=== PATIENT | female | born 1985 | race Caucasian/White ===

== ENCOUNTER 2018-08-08 03:11 | Inpatient (IN) | payer SELFPAY ==
[2018-08-08] MEDS ORDERED: KETOROLAC TROMETHAMINE INJ/PF 30 MG/1 ML SDV IV ONE (03:47)
[2018-08-08] MEDS ORDERED: RINGERS SOLUTION,LACTATED 1,000 ML IV ONE (03:55)
--- NOTE | 2018-08-08 04:22 | ER Document Report ---
ED General - General Chief Complaint: Shortness Of Breath Stated Complaint: SICK, RIB PAIN Time Seen by Provider: 08/08/18 03:41 Primary Care Provider: BROOK WAY MD [ACTIVE STAFF] - 08/10/18 VENESSA TREADWELL MD [Primary Care Provider] - 08/10/18 Notes: Patient is a 32-year-old female presents with complaint of sudden onset of fever with pain whenever she takes a deep breath or cough on the right side. Some congestion. No vomiting. No known sick contacts. No chronic medical problems. TRAVEL OUTSIDE OF THE [place] IN LAST 30 DAYS: No - Related Data Allergies/Adverse Reactions: Penicillins Adverse Reaction (Verified 08/08/18 03:17) Past Medical History - Social History Smoking Status: Unknown if Ever Smoked Frequency of alcohol use: None Drug Abuse: None Family History: Reviewed & Not Pertinent Review of Systems - Review of Systems Notes: My Normal Review Basic REVIEW OF SYSTEMS: CONSTITUTIONAL : Fevers EENT: Denies eye, ear, throat, or mouth pain or symptoms. Denies nasal or sinus congestion. CARDIOVASCULAR: Pain with coughing RESPIRATORY: difficult to breathing and coughing GASTROINTESTINAL: Denies abdominal pain. Denies nausea, vomiting, or diarrhea. Denies constipation. Last BM: GENITOURINARY: Denies difficulty urinating, painful urination, burning, frequency, or blood in urine. MUSCULOSKELETAL: Body aches SKIN: Denies rash or skin lesions. NEUROLOGICAL: Denies altered mental status or loss of consciousness. Denies headache. Denies weakness or paralysis or loss of use of either side. Denies problems with gait or speech. Denies sensory or motor loss. ALL OTHER SYSTEMS REVIEWED AND NEGATIVE. Physical Exam - Vital signs Vitals: Temp Pulse Resp BP Pulse Ox 102.0 F H 73 26 H 102/62 88 L 08/08/18 03:15 08/08/18 03:15 08/08/18 03:15 08/08/18 03:15 08/08/18 03:15 - Notes Notes: General Appearance: Well nourished, alert, cooperative, no acute distress, moderate obvious discomfort. Holding right rib cage. Vitals: reviewed, See vital signs table. Head: no swelling or tenderness to the head Eyes: PERRL, EOMI, Conjuctiva clear Mouth: No decreasd moisture Throat: No tonsillar inflammation, No airway obstruction, No lymphadenopathy Neck: Supple, no neck tenderness, No thyromegaly Lungs: No wheezing, No rales, No rhonci, No accessory muscle use, good air exchange bilaterally. Heart: Normal rate, Regular rythm, No murmur, no rub Abdomen: Normal BS, soft, No rigidity, No abdominal tenderness, No guarding, no rebound, no abdominal masses, no organomegaly Extremities: good pulses in all extremities, no edema. Skin: warm, dry, appropriate color, patient has small areas of scarring along the back from where it appears that she has had old pimples that have become abrasion scarred. No new acute appearing rash along the flank. Nothing consistent with shingles. Neuro: speech clear, oriented x 3, normal affect, responds appropriately to questions. Course - Re-evaluation Re-evalutation: 08/08/18 06:57 Patient does have pain from what appears to be pneumonia with a small cavitary lesion. Patient does not have any risk factors for TB. I did review all this with her. She has not been outside the country. She has not been exposed in November with TB that she is aware of. She has not been coughing up blood. She is now immunosuppressed in any way. She has no chronic medical problems. She does not live on a farm and does not do with livestock. I did call our pulmonologis t, Dr. Way, discussed the case with him. Is being the patient does not have risk factors for TB the most common causes would be MRSA or Klebsiella Pseudomonas. He recommends cover for MRSA as well as treatment with Levaquin to cover for Pseudomonas. Says the patient clinically looks well and is doing well then she can be discharged home and follow-up outpatient in. Is hoping to get the patient to this point but unfortunately she continues to be splint because of pain and becomes hypoxic because of this. She looks very uncomfortable. I do not think she will do well at home. We will place her on 2 L nasal cannula. I have ordered vancomycin as well as Levaquin. I have spoken to hospitalist Dr. Wynn and Laura Ravi NP, who agree to evaluate the patient for admission. Dictation of this chart was performed using voice recognition software; therefore, there may be some unintended grammatical errors. 08/08/18 07:01 08/08/18 07:46 08/08/18 07:48 - Vital Signs Vital signs: Temp Pulse Resp BP Pulse Ox 102.0 F H 73 29 H 97/48 L 99 08/08/18 03:15 08/08/18 03:15 08/08/18 07:13 08/08/18 07:13 08/08/18 07:13 - Laboratory Result Diagrams: 08/08/18 05:00 08/08/18 05:00 Laboratory results interpreted by me: 08/08/18 05:00 WBC 19.2 H Hgb 9.4 L Hct 29.3 L MCV 71 L MCH 22.8 L RDW 18.6 H Lymphocytes % 11.6 L Absolute Neutrophils 14.5 H Absolute Monocytes 2.4 H Discharge - Discharge Clinical Impression: Pneumonia Qualifiers: Pneumonia type: due to unspecified organism Laterality: right Lung location: lower lobe of lung Qualified Code(s): J18.1 - Lobar pneumonia, unspecified organism Condition: Stable Disposition: ADMITTED OBSERVATION Admitting Provider: Hospitalist Unit Admitted: Telemetry Additional Instructions: You have a pneumonia with a cavitary lesion. There are several different kinds of bacteria that could cause this. We will place you on two different antibiotics to ensure you covered. Please take the antibiotics as prescribed. Please call Dr. Way, manager commission, to make a close follow up appointment. Please call his office on Friday to make you appointment. please return to the ER immediately if you have intractable pain, recurrent fevers not responding to tylenol, coughing up of blood, difficulty breathing, or if you feel that you are worsening in any way. I have sent you home with a few Os[place] tablets to help with the pain. please take this sparingly so as to not develop dependence. Please return to the ER on Friday for reevaluation if you are unable to get in to your doctor or Dr. Way. You have been prescribed an antibiotic that is in the class of antibiotics called fluoroquinolones. On rare occasions these can cause weakness of the tendons. You should therefore avoid any type of heavy lifting or sporting activities while you are on this antibiotic and up to 1 week after stopping it. Doxycycline will make your skin more sensitive to the sun so please make sure you keep your skin covered or wear sunscreen whenever out in the sun. Please be aware that Osage does have Tylenol (acetaminophen) in it. Please make sure you do not take more than 4000 mg of acetaminophen a day. Do not drive or care for children after you have taken this medication they will make you sleepy and sometimes impair judgment. Prescriptions: Doxycycline Hyclate 100 mg PO BID #14 tablet. Hydrocodone/Acetaminophen [Os[place] 5-325 mg Tablet] 1 tab PO Q4 PRN #12 tablet PRN Reason: For Breakthrough Pain Levofloxacin [Levaquin 750 mg Tablet] 750 mg PO DAILY #5 tablet Referrals: VENESSA TREADWELL MD [Primary Care Provider] - 08/10/[address] MD [ACTIVE STAFF] - 08/10/18
[2018-08-08] MEDS ORDERED: KETOROLAC TROMETHAMINE INJ/PF 30 MG/1 ML SDV IM ONE (04:37)
--- NOTE | 2018-08-08 05:05 | RADIOLOGY REPORT (SQ) ---
CLINICAL HISTORY: cough/CP/SOB COMPARISON: None. TECHNIQUE: XR CHEST 2 VIEWS 08/08/2018 12:00 AM MANGLE TENDER CLOTH FINDINGS: Cardiac silhouette is normal in size. There is a 2.2 cm nodule in the perihilar right lung. There is a trace right pleural effusion. There is no pneumothorax. There are no acute osseous findings. IMPRESSION: 2.2 cm right lung nodule. Recommend unenhanced nonemergent chest CT.
[2018-08-08] MEDS ORDERED: MORPHINE SULFATE 10 MG/ML INJ IV ONE ×2 (05:13→07:01)
[2018-08-08 05:16] LABS: ABSOLUTE BASOPHILS # (AUTO) 0.1 10^3/uL (0.0-0.2); ABSOLUTE LYMPHOCYTES (AUTO) 2.2 10^3/uL (0.5-4.7); ABSOLUTE MONOCYTES (AUTO) 2.4 10^3/uL (0.1-1.4); ABSOLUTE NEUT (AUTO) 14.5 10^3/uL (1.7-8.2); BASOPHILS % (AUTO) 0.3 % (0-2); EOSINOPHILS % (AUTO) 0.2 % (0-6); HEMATOCRIT 29.3 % (36.0-47.0); HEMOGLOBIN 9.4 g/dL (12.0-15.5); LYMPHOCYTES % (AUTO) 11.6 % (13-45); MEAN CORPUSCULAR HEMOGLOBIN 22.8 pg (27.0-33.4); MEAN CORPUSCULAR HGB CONC 32.1 g/dL (32.0-36.0); MEAN CORPUSCULAR VOLUME 71 fl (80-97); MONOCYTES % (AUTO) 12.4 % (3-13); PLATELET COUNT 358 10^3/uL (150-450); RED BLOOD COUNT 4.11 10^6/uL (3.72-5.28); RED CELL DISTRIBUTION WIDTH 18.6 % (11.5-14.0); SEGMENTED NEUTROPHILS % (AUTO) 75.5 % (42-78); TOTAL CELLS COUNTED % (AUTO) 100 %; WHITE BLOOD COUNT 19.2 10^3/uL (4.0-10.5)
[2018-08-08 05:34] LABS: ANION GAP 11 (5-19); BLOOD UREA NITROGEN 12 mg/dL (7-20); CALCIUM 8.8 mg/dL (8.4-10.2); CARBON DIOXIDE 26 mmol/L (22-30); CHLORIDE 101 mmol/L (98-107); GLUCOSE 108 mg/dL (75-110); POTASSIUM 4.1 mmol/L (3.6-5.0); SODIUM 138.2 mmol/L (137-145)
[2018-08-08 05:39] LABS: A TYPE INFLUENZA AG NEGATIVE (NEGATIVE); B INFLUENZA AG NEGATIVE (NEGATIVE)
--- NOTE | 2018-08-08 06:19 | RADIOLOGY REPORT (SQ) ---
CLINICAL HISTORY: sob, cough, lung nodule vs. infiltrate COMPARISON: None. TECHNIQUE: CT CHEST WITH IV CONTRAST on 08/08/2018 5:11 AM CEMENT WORKER. MIPS reconstructions were generated. This exam was performed according to our departmental dose-optimization program, which includes automated exposure control, adjustment of the mA and/or kV according to patient size and/or use of iterative reconstruction technique. MIP images were generated. FINDINGS: Thoracic aorta is normal in course and caliber without aneurysm or dissection. Pulmonary arteries are adequately opacified without acute or chronic filling defects. The heart is normal in size. There is no pericardial effusion. Intrathoracic lymph nodes are not enlarged. There is a small right pleural effusion. Central airways are patent. There is a minimally cavitary nodule measuring 2.6 x 2.6 cm in the superior segment of the right lower lobe. There is a large dependent consolidation in the posterior aspect of the right lower lobe. There are no acute abnormalities within the limited images of the upper abdomen. There are no acute osseous findings. No suspicious bony lesions. IMPRESSION: Right lower lobe pneumonia. Cavitary nodule is likely part of infectious process.
[2018-08-08] MEDS ORDERED: DOXYCYCLINE HYCLATE 100 MG TABLET PO ONE (06:46)
[2018-08-08] MEDS ORDERED: LEVOFLOXACIN 750 MG TABLET PO ONE (06:47)
[2018-08-08] MEDS ORDERED: HYDROCODONE/ACETAMINOPHEN 5-325 MG (6 TAB/ER DISP) PO PRN (06:54)
[2018-08-08] MEDS ORDERED: VANCOMYCIN HCL INJ 1000 MG VIAL IV ONE (07:01)
[2018-08-08] MEDS ORDERED: LEVOFLOXACIN 750 MG/D5W RTU 750 MG/150 ML RTUPB IV ONE (07:02)
[2018-08-08] MEDS ORDERED: ACETAMINOPHEN 325 MG TABLET PO PRN (09:41)
[2018-08-08] MEDS ORDERED: ALBUTEROL SULFATE 0.083% NEB 2.5 MG/3 ML AMPUL NEB PRN (09:41)
[2018-08-08] MEDS ORDERED: OXYCODONE-ACETAMINOPHEN 5-325 MG TABLET PO PRN (09:46)
[2018-08-08] MEDS ORDERED: ONDANSETRON HCL INJ/PF 4 MG/2 ML SDV IV PRN (09:46)
[2018-08-08] MEDS ORDERED: MAG HYDROX/AL HYDROX/SIMETH SUSP 30 ML UDCUP PO PRN (09:46)
[2018-08-08] MEDS ORDERED: MAGNESIUM HYDROXIDE SUSP 30 ML UDCUP PO PRN (09:46)
[2018-08-08] MEDS ORDERED: VANCOMYCIN HCL 0 MG in DEXTROSE 5%-WATER 250 ML IV NR (10:00)
[2018-08-08] MEDS: NORMAL SALINE 1000 ML 1,000 ML IV PRN ×2 (12:44→21:46)
[2018-08-08] MEDS: FAMOTIDINE 20 MG TABLET PO SCH ×2 (12:51→21:44)
[2018-08-08] MEDS: DOCUSATE SODIUM 100 MG CAPSULE PO SCH (12:51)
[2018-08-08] MEDS: GUAIFENESIN 600 MG TABLET.SA PO SCH ×2 (12:51→21:44)
[2018-08-08] MEDS: OXYCODONE-ACETAMINOPHEN 5-325 MG TABLET PO PRN ×2 (12:51→21:44)
[2018-08-08] MEDS: ENOXAPARIN SODIUM INJ 40 MG/0.4 ML DISP.SYRIN SUBCUT SCH (12:52)
[2018-08-08 14:00] LABS: ALANINE AMINOTRANSFERASE < 6 U/L (9-52); ALKALINE PHOSPHATASE 113 U/L (38-126); ASPARTATE AMINO TRANSFERASE 51 U/L (14-36); BILIRUBIN,DIRECT 0.5 mg/dL (0.0-0.4); BILIRUBIN,TOTAL 0.7 mg/dL (0.2-1.3); TOTAL PROTEIN 8.2 g/dL (6.3-8.2)
[2018-08-08] MEDS: VANCOMYCIN HCL 750 MG in DEXTROSE 5%-WATER 250 ML IV SCH ×2 (14:55→21:44)
[2018-08-08] MEDS: IPRATROPIUM/ALBUTEROL 0.5-2.5 MG/3 ML AMPUL NEB SCH ×2 (16:08→23:57)
[2018-08-08 16:34] LABS: URINE BARBITURATES SCREEN NEGATIVE; URINE BENZODIAZEPINES SCREEN NEGATIVE; URINE MARIJUANA (THC) SCREEN NEGATIVE; URINE METHADONE SCREEN NEGATIVE; URINE PHENCYCLIDINE SCREEN NEGATIVE
[2018-08-08] MEDS ORDERED: NORMAL SALINE 1000 ML 1,000 ML IV ONE (16:38)
--- NOTE | 2018-08-08 16:51 | PDOC H&P ---
<KYRA STRONG - Last Filed: 08/08/18 16:34> History of Present Illness Admission Date/PCP: 08/08/18 09:41 VENESSA TREADWELL MD Patient complains of: Dyspnea History of Present Illness: DOROTEO IRAHETA is a 32 year old female with a past medical history of IV drug use and tobacco dependence with continuous use who presented to the emergency department today with a complaint of 3 days of progressively worsening cough, shortness of breath, pleuritic/chest wall pain to the right lateral chest wall, fever and chills. She reports that her significant other has similar symptoms; in fact, was admitted to our facility and recently transferred to a tertiary care facility for endocarditis with septic emboli resulting in multiple cavitary lesions. She reports that her last IV drug use was yesterday; shared materials with her significant other. Evaluation in the emergency department revealed fever (102), tachycardia (118), hypotension (95/58), tachypnea (32), and hypoxia 88% on room air. She is also noted to have leukocytosis (WBCs 19.2), anemia (hemoglobin 9.4), unremarkable chemistry, and chest CT revealing a right lower lobe pneumonia with small right pleural effusion and 2.6 x 2.6 cm right lower lobe cavitary lesion. She is referred to the hospitalist service for admission and management of sepsis secondary to right lower lobe pneumonia and presumed endocarditis. Past Medical History Cardiac Medical History: Reports: None Pulmonary Medical History: Reports: None EENT Medical History: Reports: None Neurological Medical History: Reports: None Endocrine Medical History: Reports: None Renal/ Medical History: Reports: None Malignancy Medical History: Reports: None GI Medical History: Reports: None Musculoskeltal Medical History: Reports: None Psychiatric Medical History: Reports: Substance Abuse, Tobacco Dependency Traumatic Medical History: Reports: None Hematology: Reports: None Infectious Medical History: Reports: None Past Surgical History Past Surgical History: Reports: Tubal Ligation Social History Information Source: Patient Lives with: Parents Smoking Status: Current Every Day Smoker Cigarettes Packs Per Day: 1 Frequency of Alcohol Use: Rare Hx Recreational Drug Use: Yes Drugs: Heroin Hx Prescription Drug Abuse: No - Advance Directive Resuscitation Status: Full Code Surrogate healthcare decision maker:: The patient's uncle, Jac Gresham, Family History Family History: Reviewed & Not Pertinent Parental Family History Reviewed: Yes Children Family History Reviewed: Yes Sibling(s) Family History Reviewed.: Yes Medication/Allergy Home Medications: RX: No Home Medications 08/08/18 Allergies/Adverse Reactions: Penicillins Adverse Reaction (Verified 08/08/18 03:17) Review of Systems Constitutional: PRESENT: chills, fatigue, fever(s), headache(s), night sweats. ABSENT: weight gain, weight loss Eyes: ABSENT: visual disturbances Ears: ABSENT: hearing changes Cardiovascular: PRESENT: chest pain, dyspnea on exertion. ABSENT: edema, orthropnea, palpitations Respiratory: PRESENT: cough, dyspnea, sputum. ABSENT: hemoptysis Gastrointestinal: ABSENT: abdominal pain, constipation, diarrhea, hematemesis, hematochezia, nausea, vomiting Genitourinary: ABSENT: dysuria, hematuria Musculoskeletal: ABSENT: joint swelling Integumentary: ABSENT: rash, wounds Neurological: ABSENT: abnormal gait, abnormal speech, confusion, dizziness, focal weakness, syncope Psychiatric: ABSENT: anxiety, depression, homidical ideation, suicidal ideation Endocrine: ABSENT: cold intolerance, heat intolerance, polydipsia, polyuria Hematologic/Lymphatic: ABSENT: easy bleeding, easy bruising Physical Exam Vital Signs: Temp Pulse Resp BP Pulse Ox 98.1 F 72 16 95/58 L 100 08/08/18 16:00 08/08/18 16:08 08/08/18 16:08 08/08/18 16:00 08/08/18 16:08 Pulse Oximeter Continuous Start: 08/08/18 11: 24 Freq: RTQ4 Status: Active Protocol: Document 08/08/18 16:08 [facility] (Rec: 08/08/18 16:14 [facility] [id number]) Pulse Oximetry Assessment Oxygen Saturation (92-100) 100 Oxygen Delivery Method Room Air Fraction of Inspired Oxygen (FIO2) 21 Equipment Usage Equipment in Use Continuous SpO2 Machine # 11 Intake & Output 08/07/18 08/08/18 08/09/18 06:59 06:59 06:59 Intake Total 1000 Balance 1000 Weight 58.06 kg 64.7 kg General appearance: PRESENT: no acute distress, disheveled, thin, well-developed Head exam: PRESENT: atraumatic, normocephalic Eye exam: PRESENT: conjunctiva pink, EOMI, PERRLA. ABSENT: scleral icterus Ear exam: PRESENT: normal external ear exam Mouth exam: PRESENT: moist, tongue midline Teeth exam: PRESENT: poor dentation Neck exam: ABSENT: carotid bruit, JVD, lymphadenopathy, thyromegaly Respiratory exam: PRESENT: chest wall tenderness, decreased breath sounds - Bibasilar; R>L, poor inspiratory effort, rhonchi - Course, throughout, symmetrical, tachypnea, other - Supplemental oxygen by nasal cannula. ABSENT: rales, wheezes Cardiovascular exam: PRESENT: RRR, +S1, +S2, tachycardia, other - Difficult to assess secondary to adventitious lung sounds. ABSENT: diastolic murmur, rubs, systolic murmur Pulses: PRESENT: normal dorsalis pedis pul Vascular exam: PRESENT: normal capillary refill GI/Abdominal exam: PRESENT: normal bowel sounds, soft. ABSENT: distended, guarding, mass, organolmegaly, rebound, tenderness Rectal exam: PRESENT: deferred Extremities exam: PRESENT: full ROM. ABSENT: calf tenderness, clubbing, pedal edema Neurological exam: PRESENT: alert, awake, oriented to person, oriented to place, oriented to time, oriented to situation, CN II-XII grossly intact. ABSENT: motor sensory deficit Psychiatric exam: PRESENT: anxious, appropriate affect, normal mood. ABSENT: homicidal ideation, suicidal ideation Skin exam: PRESENT: dry, intact, warm. ABSENT: cyanosis, rash Results Laboratory Results: 08/08/18 05:00 08/08/18 05:00 08/08/18 08/08/18 08/08/18 05:00 05:00 05:00 WBC 19.2 H RBC 4.11 Hgb 9.4 L Hct 29.3 L MCV 71 L MCH 22.8 L MCHC 32.1 RDW 18.6 H Plt Count 358 Seg Neutrophils % 75.5 Lymphocytes % 11.6 L Monocytes % 12.4 Eosinophils % 0.2 Basophils % 0.3 Absolute Neutrophils 14.5 H Absolute Lymphocytes 2.2 Absolute Monocytes 2.4 H Absolute Eosinophils 0.0 Absolute Basophils 0.1 Sodium 138.2 Potassium 4.1 Chloride 101 Carbon Dioxide 26 Anion Gap 11 BUN 12 Creatinine 0.59 Est GFR ( Amer) > 60 Est GFR (Non-Af Amer) > 60 Glucose 108 Calcium 8.8 Total Bilirubin AST ALT Alkaline Phosphatase Total Protein Albumin Serum HCG, Qual NEGATIVE 08/08/18 05:00 WBC RBC Hgb Hct MCV MCH MCHC RDW Plt Count Seg Neutrophils % Lymphocytes % Monocytes % Eosinophils % Basophils % Absolute Neutrophils Absolute Lymphocytes Absolute Monocytes Absolute Eosinophils Absolute Basophils Sodium Potassium Chloride Carbon Dioxide Anion Gap BUN Creatinine Est GFR ( Amer) Est GFR (Non-Af Amer) Glucose Calcium Total Bilirubin 0.7 AST 51 H ALT < 6 L Alkaline Phosphatase 113 Total Protein 8.2 Albumin 4.0 Serum HCG, Qual Impressions: Chest X-Ray 08/08/18 00:00 IMPRESSION: 2.2 cm right lung nodule. Recommend unenhanced nonemergent chest CT. Chest CT 08/08/18 05:11 IMPRESSION: Right lower lobe pneumonia. Cavitary nodule is likely part of infectious process. Assessment & Plan - Diagnosis (1) Pneumonia Qualifiers: Pneumonia type: due to unspecified organism Laterality: right Lung location: lower lobe of lung Qualified Code(s): J18.1 - Lobar pneumonia, unspecified organism Is this a current diagnosis for this admission?: Yes Plan: CXR demonstrated a 2 cm right lung nodule Chest CT revealed a small right pleural effusion, 2.6 x 2.6 cm cavitary lesion to the right lower lobe with dependent consolidation to the posterior aspect of the right lower lobe. Blood cultures are pending. Patient is admitted to the medical floor and continuous cardiac telemetry and co ntinuous pulse ox. She is provided supplemental oxygen as needed to maintain oxygen saturations greater than 90%. She is ordered scheduled and as needed nebulizer treatments. Mucinex twice daily. She is empirically placed on IV vancomycin and Levaquin. She did receive 1 dose of IV doxycycline by the ED provider. Will adjust antibiotics as blood cultures result. Discharge planning is consulted. (2) Sepsis Qualifiers: Sepsis type: sepsis due to unspecified organism Qualified Code(s): A41.9 - Sepsis, unspecified organism Is this a current diagnosis for this admission?: Yes Plan: The patient presented with sepsis 2 criteria due to pneumonia, present on admission, evidenced by fever, tachycardia, tachypnea, hypotension, hypoxia, and leukocytosis. Blood cultures are pending. She is provided IV bolus followed by IV maintenance fluids. Antibiotics as above. (3) IV drug user Is this a current diagnosis for this admission?: Yes Plan: The patient admits to IV heroin use yesterday. She reports daily use. Will monitor closely for evidence with withdrawal and provide symptomatic management as indicated. Due to the patient's presenting symptoms of pneumonia with a cavitary lesion; there is concern for endocarditis. Will obtain TTE. Discharge planning is consulted. (4) Suspected endocarditis Is this a current diagnosis for this admission?: Yes Plan: As above. (5) Tobacco use Is this a current diagnosis for this admission?: Yes Plan: Smoking cessation is encouraged. Nicotine or placement therapies are provided. - Time Time Spent: 50 to 70 Minutes Smoking Cessation Education: 3 to 10 minutes Medications reviewed and adjusted accordingly: Yes - Inpatient Certification Based on my medical assessment, after consideration of the patient's comorbidities, presenting symptoms, or acuity I expect that the services needed warrant INPATIENT care.: Yes I certify that my determination is in accordance with my understanding of Medicare's requirements for reasonable and necessary INPATIENT services [42 CFR 412.3e].: Yes Medical Necessity: Need Close Monitoring Due to Risk of Patient Decompensation, Need For IV Fluids, Need For Continuous Telemetry Monitoring, Need for IV Anti biotics, Risk of Diagnosis Which Will Require Inpatient Eval/Care/Monitoring <HARDIK MACHADO - Last Filed: 08/09/18 07:22> History of Present Illness Admission Date/PCP: 08/08/18 09:41 VENESSA TREADWELL MD History of Present Illness: DOROTEO IRAHETA is a 32 year old female Physical Exam Vital Signs: Temp Pulse Resp BP Pulse Ox 99.8 F 92 20 129/81 H 99 08/09/18 04:09 08/09/18 04:09 08/09/18 04:09 08/09/18 04:09 08/09/18 04:09 Pulse Oximeter Continuous Start: 08/08/18 11:24 Freq: RTQ4 Status: Active Protocol: Document 08/09/18 04:00 [facility] (Rec: 08/09/18 04:40 [facility] [id number]) Pulse Oximetry Assessment Oxygen Saturation (92-100) 95 Oxygen Delivery Method Room Air Fraction of Inspired Oxygen (FIO2) 21 Equipment Usage Equipment in Use Continuous Pulse Oximeter 24 Hour Charge Charge Now Continuous SpO2 Machine # 11 Intake & Output 08/08/18 08/09/18 08/10/18 06:59 06:59 06:59 Intake Total 1000 3286 Output Total 1480 Balance 1000 1806 Weight 128 lb 102 lb 4.712 oz Results Laboratory Results: 08/08/18 05:00 08/08/18 05:00 08/08/18 05:00 Total Bilirubin 0.7 AST 51 H ALT < 6 L Alkaline Phosphatase 113 Total Protein 8.2 Albumin 4.0 Impressions: Chest X-Ray 08/08/18 00:00 IMPRESSION: 2.2 cm right lung nodule. Recommend unenhanced nonemergent chest CT. Chest CT 08/08/18 05:11 IMPRESSION: Right lower lobe pneumonia. Cavitary nodule is likely part of infectious process. Assessment & Plan - Plan Summary Plan Summary: i did not see patient myself- agree with plan as it was presented to me
[2018-08-08 17:15] LABS: URINE COCAINE SCREEN UNCONFIRMED POSITIVE
[2018-08-08] MEDS: KETOROLAC TROMETHAMINE INJ/PF 30 MG/1 ML SDV IV PRN (17:37)
[2018-08-09] MEDS: KETOROLAC TROMETHAMINE INJ/PF 30 MG/1 ML SDV IV PRN (03:42)
[2018-08-09] MEDS: VANCOMYCIN HCL 750 MG in DEXTROSE 5%-WATER 250 ML IV SCH (05:10)
[2018-08-09] MEDS ORDERED: LEVOFLOXACIN 750 MG/D5W RTU 750 MG/150 ML RTUPB IV SCH (06:00)
[2018-08-09 08:27] VITALS: BP 118/73
[2018-08-09] MEDS: IPRATROPIUM/ALBUTEROL 0.5-2.5 MG/3 ML AMPUL NEB SCH (09:07)
[2018-08-09] MEDS: GUAIFENESIN 600 MG TABLET.SA PO SCH (09:52)
[2018-08-09] MEDS: DOCUSATE SODIUM 100 MG CAPSULE PO SCH (09:53)
[2018-08-09] MEDS: NICOTINE 14 MG/24 HR PATCH.TD24 TD SCH ×2 (09:53→09:59)
[2018-08-09] MEDS: ENOXAPARIN SODIUM INJ 40 MG/0.4 ML DISP.SYRIN SUBCUT SCH (09:53)
[2018-08-09] MEDS: FAMOTIDINE 20 MG TABLET PO SCH (09:53)
--- NOTE | 2018-08-09 14:12 | XCELERA REPORT ---
[address] [address] Transthoracic Echocardiogram Report Name: DOROTEO IRAHETA Age: 32 yrs Gender: Female : 1985 Patient Status: Inpatient Patient Location: [address] [place] [address] Study Date: 08/09/2018 09:36 AM Height: 71 in Weight: 142 lb BSA: 1.8 m2 Procedure: A two-dimensional transthoracic echocardiogram with color flow and Doppler was performed. The study was technically difficult with many images being suboptimal in quality. Reason For Study: Suspected endocarditis History: ENDOCARDITIS. Ordering Physician: KYRA STRONG Performed By: Bird Alaniz Interpretation Summary The left ventricle is normal in size. There is normal left ventricular wall thickness. The left ventricular ejection fraction is normal. LV EF is 65% Doppler measurements suggest normal left ventricular diastolic function The left ventricular wall motion is normal. There is no thrombus. There is no ventricular septal defect visualized. The right ventricle is normal in size and function. The right atrium is normal. The left atrial size is normal. The interatrial septum is intact with no evidence for an atrial septal defect. There is no evidence of mitral valve prolapse. There is suspicion for anterior mitral valve small vegetation.Needs ARIEL to be sure. There is no mitral valve stenosis. There is a trace amount of mitral regurgitation There is no aortic valve stenosis There is no LVOT obstruction. No aortic regurgitation is present. There is no tricuspid valve vegetation. There is no tricuspid stenosis. There is a trace to mild amount of tricuspid regurgitation There is mild pulmonary hypertension by echo RVSP is 34 mm of HG , with RA mean of 10. There is no pulmonic valvular stenosis. There is a trace amount of pulmonic regurgitation The aortic root is normal size. The inferior vena cava appeared normal and decreased > 50% with respiration (RAP 5-10 mmHg) There is no pericardial effusion. MMode/2D Measurements & Calculations RVDd: 2.1 cm LVIDd: 4.8 cm FS: 37.6 % Ao root diam: 3.1 cm IVSd: 0.89 cm LVIDs: 3.0 cm EDV(Teich): 109.2 ml Ao root area: 7.3 cm2 LVPWd: 0.90 cm ESV(Teich): 35.4 ml EF(Teich): 67.6 % LVOT diam: 1.8 cm LVOT area: 2.6 cm2 Doppler Measurements & Calculations MV E max vahe: MV dec slope: Ao V2 max: LV V1 max P.6 cm/sec 906.4 cm/sec2 143.0 cm/sec 5.7 mmHg MV A max vahe: MV dec time: Ao max PG: LV V1 mean P.2 cm/sec 0.16 sec 8.2 mmHg 3.1 mmHg MV E/A: 1.9 Ao V2 mean: LV V1 max: 97.8 cm/sec 119.8 cm/sec Ao mean PG: LV V1 mean: 4.3 mmHg 82.2 cm/sec Ao V2 VTI: 26.8 cmLV V1 VTI: 24.0 cm TRAV(I,D): 2.3 cm2 TRAV(V,D): 2.2 cm2 MR max vahe: SV(LVOT): 62.4 ml PA V2 max: PI end-d vahe: 243.2 cm/sec 84.6 cm/sec 76.1 cm/sec MR max PG: PA max P.7 mmHg 2.9 mmHg TR max vahe: 243.6 cm/sec TR max P.7 mmHg Left Ventricle The left ventricle is normal in size. There is normal left ventricular wall thickness. The left ventricular ejection fraction is normal. LV EF is 65%. Doppler measurements suggest normal left ventricular diastolic function. The left ventricular wall motion is normal. There is no thrombus. There is no ventricular septal defect visualized. Right Ventricle The right ventricle is normal in size and function. Atria The right atrium is normal. The left atrial size is normal. The interatrial septum is intact with no evidence for an atrial septal defect. Mitral Valve There is no evidence of mitral valve prolapse. There is suspicion for anterior mitral valve small vegetation.Needs ARIEL to be sure. There is no mitral valve stenosis. There is a trace amount of mitral regurgitation. Aortic Valve There is no aortic valvular vegetation. There is no aortic valve stenosis. There is no LVOT obstruction. No aortic regurgitation is present. Tricuspid Valve There is no tricuspid valve vegetation. There is no tricuspid stenosis. There is a trace to mild amount of tricuspid regurgitation. There is mild pulmonary hypertension by echo. RVSP is 34 mm of HG , with RA mean of 10. Pulmonic Valve There is no pulmonic valvular stenosis. There is a trace amount of pulmonic regurgitation. Great Vessels The aortic root is normal size. The inferior vena cava appeared normal and decreased > 50% with respiration (RAP 5-10 mmHg). Effusions There is no pericardial effusion. : KYRA STRONG > Hui Escudero
--- NOTE | 2018-08-09 15:17 | PDOC DISCHARGE SUMMARY ---
Addendum entered and electronically signed by KYRA STRONG NP-C 08/09/18 15:33: Provider Note Provider Note: Amendment: Patient was provided prescriptions for Levaquin and clindamycin. Original Note: <KYRA STRONG - Last Filed: 08/09/18 15:32> General - Admit/Disc Date/PCP Admission Date/Primary Care Provider: 08/08/18 09:41 VENESSA TREADWELL MD Discharge Date: 08/09/18 - Discharge Diagnosis (1) Pneumonia Is this a current diagnosis for this admission?: Yes (2) Sepsis Is this a current diagnosis for this admission?: Yes (3) IV drug user Is this a current diagnosis for this admission?: Yes (4) Suspected endocarditis Is this a current diagnosis for this admission?: Yes (5) Tobacco use Is this a current diagnosis for this admission?: Yes - Additional Information Resuscitation Status: Full Code Prescriptions: Levofloxacin [Levaquin 750 mg Tablet] 750 mg PO DAILY #10 tab RX: Clindamycin HCl [Cleocin 300 mg Capsule] 600 mg PO Q8 #84 cap Home Medications: Levofloxacin [Levaquin 750 mg Tablet] 750 mg PO DAILY #10 tab 08/09/18 RX: Clindamycin HCl [Cleocin 300 mg Capsule] 600 mg PO Q8 #84 cap 08/09/18 History of Present Illness History of Present Illness: DOROTEO IRAHETA is a 32 year old female with a past medical history of IV drug use and tobacco dependence with continuous use who presented to the emergency department today with a complaint of 3 days of progressively worsening cough, shortness of breath, pleuritic/chest wall pain to the right lateral chest wall, fever and chills. She reports that her significant other has similar symptoms; in fact, was admitted to our facility and recently transferred to a tertiary care facility for endocarditis with septic emboli resulting in multiple cavitary lesions. She reports that her last IV drug use was yesterday; shared materials with her significant other. Evaluation in the emergency department revealed fever (102), tachycardia (118), hypotension (95/58), tachypnea (32), and hypoxia 88% on room air. She is also noted to have leukocytosis (WBCs 19.2), anemia (hemoglobin 9.4), unremarkable chemistry, and chest CT revealing a right lower lobe pneumonia with small right pleural effusion and 2.6 x 2.6 cm right lower lobe cavitary lesion. She is referred to the hospitalist service for admission and management of sepsis secondary to right lower lobe pneumonia and presumed endocarditis. Hospital Course Hospital Course: The patient was admitted to the medical floor on continuous cardiac telemetry for right lower lobe pneumonia with cavitary lesion concerning for endocarditis with septic emboli. The patient admits to daily IV drug use. The patient was provided supplemental oxygen as needed to maintain saturations, scheduled and as needed nebulizer treatments, Mucinex, antiemetics, and analgesics as needed (Tylenol, IV Toradol, Percocet). She was placed on IV vancomycin and Levaquin secondary to penicillin allergy. The patient's respiratory status improved slightly and she was now maintaining oxygen saturations while on room air, though with increased work of breathing and tachypnea. Due to high suspicion of endocarditis, a transthoracic echocardiogram was obtained. The patient remained in-house for just over 24 hours prior to leaving AGAINST MEDICAL ADVICE. The patient reported that she was leaving [place] to travel to [facility] to visit her significant other who was just transferred to that facility for endocarditis. The patient was provided prescriptions for p.o. Augmentin and Clindamycin (MRSA coverage). She was educated that these medicati ons would help recover from pneumonia, but that cavitary pneumonia could develop complications requiring pulmonology/surgical interventions. She was also informed that these medications were not effective for the treatment of endocarditis and she was strongly encouraged to seek additional medical a ttention when she arrived at [facility]. After the patient left, the carpenter general contacted me with echocardiogram results. There is suspicion of mitral valve vegetation and need for follow-up ARIEL. The patient was called at home and notified of the results. She was informed that she could return to [facility] for care, including admission, arrangement for ARIEL, and 6 weeks of IV antibiotics if indicated, or, she could present to the emergency room at [facility] for care at their facility as well. The patient expressed appreciation for the call and reported that she would likely return to [facility] this evening for readmission. Physical Exam Vital Signs: Temp Pulse Resp BP Pulse Ox 98.9 F 92 18 118/73 97 08/09/18 08:00 08/09/18 09:07 08/09/18 09:07 08/09/18 08:00 08/09/18 09:07 Pulse Oximeter Continuous Start: 08/08/18 11:24 Freq: RTQ4 Status: Discharge Protocol: Document 08/09/18 09:07 [facility] (Rec: 08/09/18 10:00 [facility] [id number]) Pulse Oximetry Assessment Oxygen Saturation (92-100) 97 Oxygen Delivery Method Room Air Fraction of Inspired Oxygen (FIO2) 21 Equipment Usage Equipment in Use Continuous SpO2 Machine # 11 Intake & Output 08/08/18 08/09/18 08/10/18 06:59 06:59 06:59 Intake Total 1000 3286 400 Output Total 1480 Balance 1000 1806 400 Weight 58.06 kg 46.4 kg General appearance: PRESENT: mild distress - Acutely ill-appearing, tachypnea, shallow breathing, diaphoretic, thin, well-developed Head exam: PRESENT: atraumatic, normocephalic Eye exam: PRESENT: conjunctiva pink, EOMI, PERRLA. ABSENT: scleral icterus Ear exam: PRESENT: normal external ear exam Mouth exam: PRESENT: moist, tongue midline Teeth exam: PRESENT: dental caries, poor dentation Neck exam: ABSENT: carotid bruit, JVD, lymphadenopathy, thyromegaly Respiratory exam: PRESENT: chest wall tenderness, decreased breath sounds - Bibasilar; R>L, rhonchi, symmetrical, tachypnea. ABSENT: rales, wheezes Cardiovascular exam: PRESENT: RRR, +S1, +S2, tachycardia. ABSENT: diastolic murmur, rubs, systolic murmur Pulses: PRESENT: normal dorsalis pedis pul Vascular exam: PRESENT: normal capillary refill GI/Abdominal exam: PRESENT: normal bowel sounds, soft. ABSENT: distended, guarding, mass, organolmegaly, rebound, tenderness Rectal exam: PRESENT: deferred Extremities exam: PRESENT: full ROM. ABSENT: calf tenderness, clubbing, pedal edema Neurological exam: PRESENT: alert, awake, oriented to person, oriented to place, oriented to time, oriented to situation, CN II-XII grossly intact. ABSENT: motor sensory deficit Psychiatric exam: PRESENT: agitated, anxious, appropriate affect. ABSENT: jeanmarie icidal ideation, suicidal ideation Skin exam: PRESENT: dry, intact, warm. ABSENT: cyanosis, rash Results Laboratory Results: 08/08/18 05:00 08/08/18 05:00 Impressions: Chest X-Ray 08/08/18 00:00 IMPRESSION: 2.2 cm right lung nodule. Recommend unenhanced nonemergent chest CT. Chest CT 08/08/18 05:11 IMPRESSION: Right lower lobe pneumonia. Cavitary nodule is likely part of infectious process. Qualifiers - * PATIENT BEING DISCHARGED WITH ANY OF THE FOLLOWING DIAGNOSIS: No Plan Discharge Plan: Patient left AGAINST MEDICAL ADVICE. Time Spent: Less than 30 Minutes <JEANNETTEKIERAFLAQUITO Diana - Last Filed: 08/10/18 07:00> General - Admit/Disc Date/PCP Admission Date/Primary Care Provider: 08/08/18 09:41 VENSESA TREADWELL MD History of Present Illness History of Present Illness: DOROTEO IRAHETA is a 32 year old female Physical Exam Vital Signs: Temp Pulse Resp BP Pulse Ox 98.9 F 92 18 118/73 97 08/09/18 08:00 08/09/18 09:07 08/09/18 09:07 08/09/18 08:00 08/09/18 09:07 Pulse Oximeter Continuous Start: 08/08/18 11:24 Freq: RTQ4 Status: Discharge Protocol: Document 08/09/18 09:07 [facility] (Rec: 08/09/18 10:00 [facility] [id number]) Pulse Oximetry Assessment Oxygen Saturation (92-100) 97 Oxygen Delivery Method Room Air Fraction of Inspired Oxygen (FIO2) 21 Equipment Usage Equipment in Use Continuous SpO2 Machine # 11 Intake & Output 08/09/18 08/10/18 08/11/18 06:59 06:59 06:59 Intake Total 3286 400 Output Total 1480 Balance 1806 400 Weight 102 lb 4.712 oz Results Laboratory Results: 08/08/18 05:00 08/08/18 05:00 Impressions: Chest X-Ray 08/08/18 00:00 IMPRESSION: 2.2 cm right lung nodule. Recommend unenhanced nonemergent chest CT. Chest CT 08/08/18 05:11 IMPRESSION: Right lower lobe pneumonia. Cavitary nodule is likely part of infectious process. Plan Discharge Plan: i did not see patient- i agree with plan as it was presented to me
== END 2018-08-09 11:00 | disposition left against medical advice (07) | DRG 871 ==
LOC: ER 03:11 → EH 08:47 → OBSVTOIN 09:41 → 4S 10:14
PROVIDERS: ADMIT Internal Medicine; ATTEND Internal Medicine
DX: A41.9 Sepsis, unspecified organism (principal); J18.9 Pneumonia, unspecified organism; I38 Endocarditis, valve unspecified; F17.200 Nicotine dependence, unspecified, uncomplicated; D64.9 Anemia, unspecified; Z88.0 Allergy status to penicillin; Z87.898 Personal history of other specified conditions
CPT/HCPCS: 36415; 71046; 71260; 80048; 80076; 80307; 84703; 85025; 86701; 87040; 87804; 93306; 94667; 94762; 94799; 96361; 96365; 96372; 96375; 96376; 99285; J1650; J1885; J1956; J2270; J3370; J7030; J7060; J7120; J7620

== ENCOUNTER 2018-09-10 16:42 | Emergency (ER) | payer SELFPAY ==
[2018-09-10 17:05] VITALS: BP 128/75
--- NOTE | 2018-09-10 18:14 | EKG REPORT ---
SEVERITY:- NORMAL ECG - SINUS RHYTHM : Confirmed by: Hui Escudero MD 10-Sep-2018 18:13:32
== END 2018-09-10 20:00 | disposition left against medical advice (07) ==
LOC: ER 16:42
DX: Z53.21 Procedure and treatment not carried out due to patient leaving prior to being seen by health care provider (principal)
CPT/HCPCS: 93005; 93010

== ENCOUNTER 2019-01-12 17:49 | Emergency (ER) | payer SELFPAY ==
--- NOTE | 2019-01-12 18:29 | ER Document Report ---
Addendum entered and electronically signed by BOBO GARCIA NP 01/12/19 18:33: Course - Re-evaluation Re-evalutation: 01/12/19 18:32 Perla LUCAS states that as soon as patient is discharged [facility] will be going [facility], officer is here with her. - Vital Signs Vital signs: Temp Pulse Resp BP Pulse Ox 98.0 F 86 18 131/82 H 89 L 01/12/19 18:20 01/12/19 18:20 01/12/19 18:20 01/12/19 18:20 01/12/19 18:20 Original Note: ED Medical Screen (RME) - General Chief Complaint: Flank Pain Stated Complaint: ABDOMINAL PAIN Time Seen by Provider: 01/12/19 18:27 Primary Care Provider: VENESSA TREADWELL MD [Primary Care Provider] - Follow up as needed Mode of Arrival: Wheelchair Information source: Patient Notes: Patient presents complaining of generalized weakness and flank pain for the past 2 weeks. Patient states that she had been admitted for a week at [facility] and for a drug-resistant UTI. Patient states that she signed out AMA 10 days ago. Patient states she has had fever off and on that she has been treating with [id number] medications since leaving the hospital. Patient also complains of abscess to left buttock. I have greeted and performed a rapid initial assessment of this patient. A comprehensive ED assessment and evaluation of the patient, analysis of test results and completion of the medical decision making process will be conducted by additional ED providers. TRAVEL OUTSIDE OF THE [place] IN LAST 30 DAYS: No - Related Data Allergies/Adverse Reactions: amoxicillin [Amoxicillin] Allergy (Verified 01/12/19 18:12) Penicillins Adverse Reaction (Verified 01/12/19 18:12) Past Medical History Pulmonary Medical History: Reports: Hx Asthma - possible adult onset Renal/ Medical History: Reports: Hx Ovarian Cysts - Polycystic ovaries. Denies: Hx Peritoneal Dialysis Musculoskeltal Medical History: Reports Hx Musculoskeletal Trauma Traumatic Medical History: Reports: Hx Spine Fracture Past Surgical History: Reports: Hx Genitourinary Surgery, Hx Oral Surgery, Hx Tubal Ligation - Immunizations Immunizations up to date: Yes Hx Diphtheria, Pertussis, Tetanus Vaccination: Yes Physical Exam - Vital signs Vitals: Temp Pulse Resp BP Pulse Ox 98.0 F 86 18 131/82 H 89 L 01/12/19 18:20 01/12/19 18:20 01/12/19 18:20 01/12/19 18:20 01/12/19 18:20 - General General appearance: Alert - Abdominal Tenderness: Tender - Left side of abdomen - Back Back: CVA tenderness - Bilateral Course - Vital Signs Vital signs: Temp Pulse Resp BP Pulse Ox 98.0 F 86 18 131/82 H 89 L 01/12/19 18:20 01/12/19 18:20 01/12/19 18:20 01/12/19 18:20 01/12/19 18:20 Doctor's Discharge - Discharge Referrals: VENESSA TREADWELL MD [Primary Care Provider] - Follow up as needed
[2019-01-12 19:21] LABS: AMORPHOUS SEDIMENT,URINE TRACE /HPF; APPEARANCE,URINE CLOUDY; BILIRUBIN,URINE NEGATIVE (NEGATIVE); COLOR,URINE YELLOW; GLUCOSE, URINE NEGATIVE (NEGATIVE); KETONES,URINE TRACE mg/dL (NEGATIVE); LEUKOCYTE ESTERASE,URINE LARGE (NEGATIVE); NITRITE,URINE POSITIVE (NEGATIVE); PROTEIN,URINE NEGATIVE (NEGATIVE); URINE SPECIFIC GRAVITY 1.017; UROBILINOGEN,URINE NEGATIVE mg/dL (<2.0)
[2019-01-12 20:37] LABS: ABSOLUTE EOSINOPHILS # (AUTO) 0.1 10^3/uL (0.0-0.6); ABSOLUTE LYMPHOCYTES (AUTO) 1.1 10^3/uL (0.5-4.7); ABSOLUTE MONOCYTES (AUTO) 0.4 10^3/uL (0.1-1.4); ABSOLUTE NEUT (AUTO) 4.6 10^3/uL (1.7-8.2); BASOPHILS % (AUTO) 0.6 % (0-2); EOSINOPHILS % (AUTO) 2.3 % (0-6); HEMATOCRIT 26.4 % (36.0-47.0); HEMOGLOBIN 8.5 g/dL (12.0-15.5); LYMPHOCYTES % (AUTO) 17.3 % (13-45); MEAN CORPUSCULAR HEMOGLOBIN 23.2 pg (27.0-33.4); MEAN CORPUSCULAR VOLUME 73 fl (80-97); MONOCYTES % (AUTO) 6.9 % (3-13); PLATELET COUNT 415 10^3/uL (150-450); RED BLOOD COUNT 3.64 10^6/uL (3.72-5.28); RED CELL DISTRIBUTION WIDTH 18.8 % (11.5-14.0); SEGMENTED NEUTROPHILS % (AUTO) 72.9 % (42-78); TOTAL CELLS COUNTED % (AUTO) 100 %; WHITE BLOOD COUNT 6.3 10^3/uL (4.0-10.5)
--- NOTE | 2019-01-12 20:43 | ER Document Report ---
ED General - General Chief Complaint: Flank Pain Stated Complaint: ABDOMINAL PAIN Time Seen by Provider: 01/12/19 18:27 Primary Care Provider: VNEESSA TREADWELL MD [Primary Care Provider] - Follow up as needed Mode of Arrival: Wheelchair Notes: Patient is a 33-year-old female that comes to the emergency department for chief complaint of bilateral flank pain for the past 2 weeks, she also has a developing abscess on the left buttock which has become very painful over the past couple of days. She denies drainage from the area. She states she is been running fevers at home but has not recorded them. She denies vomiting. She states she was admitted to [facility] 10 days ago for a "resistant urinary tract infection", she states she left AGAINST MEDICAL ADVICE. She is not on any current medications except for "some Percocets they gave me". Past medical history includes ovarian cysts, asthma, tubal ligation, IV drug abuse. TRAVEL OUTSIDE OF THE [place] IN LAST 30 DAYS: No - Related Data Allergies/Adverse Reactions: amoxicillin [Amoxicillin] Allergy (Verified 01/12/19 18:12) Penicillins Adverse Reaction (Verified 01/12/19 18:12) Past Medical History - General Information source: Patient - Social History Smoking Status: Former Smoker Frequency of alcohol use: None Drug Abuse: Heroin Lives with: Spouse/Significant other Family History: Malignancy, CAD, CVA, DM, Hyperlipidemia, Hypertension, Reviewed & Not Pertinent Pulmonary Medical History: Reports: Hx Asthma - possible adult onset Renal/ Medical History: Reports: Hx Ovarian Cysts - Polycystic ovaries. Denies: Hx Peritoneal Dialysis Musculoskeletal Medical History: Reports Hx Musculoskeletal Trauma Traumatic Medical History: Reports: Hx Spine Fracture Past Surgical History: Reports: Hx Genitourinary Surgery, Hx Oral Surgery, Hx Tubal Ligation - Immunizations Immunizations up to date: Yes Hx Diphtheria, Pertussis, Tetanus Vaccination: Yes Review of Systems - Review of Systems Constitutional: No symptoms reported EENT: No symptoms reported Cardiovascular: No symptoms reported Respiratory: No symptoms reported Gastrointestinal: See HPI Genitourinary: See HPI Female Genitourinary: No symptoms reported Musculoskeletal: No symptoms reported Skin: See HPI Hematologic/Lymphatic: No symptoms reported Neurological/Psychological: No symptoms reported Physical Exam - Vital signs Vitals: Temp Pulse Resp BP Pulse Ox 98.0 F 86 18 131/82 H 89 L 01/12/19 18:20 01/12/19 18:20 01/12/19 18:20 01/12/19 18:20 01/12/19 18:20 - Notes Notes: GENERAL: Disheveled HEAD: Normocephalic, atraumatic. EYES: Pupils equal, round, and reactive to light. Extraocular movements intact. ENT: Oral mucosa moist, tongue midline. Oropharynx unremarkable. Airway patent. NECK: Full range of motion. Supple. Trachea midline. LUNGS: Clear to auscultation bilaterally, no wheezes, rales, or rhonchi. No respiratory distress. HEART: Regular rate and rhythm. No murmur ABDOMEN: Soft, non-tender. Non-distended. Bowel sounds present in all 4 quadrants. GENITOURINARY: Deferred EXTREMITIES: Moves all 4 extremities spontaneously. No edema, normal radial and dorsalis pedis pulses bilaterally. No cyanosis. BACK: no cervical, thoracic, lumbar midline tenderness. No saddle anesthesia, normal distal neurovascular exam. Moves all extremities in full range of motion. Tenderness worse over the left CVA area than the right, no severe tenderness noted. NEUROLOGICAL: Alert and oriented x3. Normal speech. Cranial nerves II through XII grossly intact. PSYCH: Normal affect, normal mood. SKIN: Scattered scabs over the body. Indurated, probably fluctuant area over the left medial buttock with induration extending close to the perianal area. No current drainage. Otherwise unremarkable skin exam. Course - Re-evaluation Re-evalutation: On examination patient has an abscess over the left buttock which extends with induration and tenderness which seems adjacent to the perianal area. No drainage. No fever/chills. Unremarkable vital signs. Patient is actually well-appearing even though she is very thin. Dr. Johnson did evaluate the patient at bedside, he reports this is not a perianal abscess and he does recommend incision and drainage here in the emergency department. This was performed without difficulty with good results. Patient tolerated this well. Packing was placed because of the size, I instructed patient this needs to be taken out in 2 days. Patient states understanding. CBC unremarkable, chemistry unremarkable. Urinalysis shows infection. Culture placed. We will obtain records from [place]. It has been several hours and we still have no records from [place]. It was found that this was not requested properly, this had to be performed again, there was significant delay because of this. Requested files did show that patient did have sepsis with ESBL on blood cultures, she also had a urinalysis showing ESBL with multiple resistances, however there are also multiple medications orally that this was not resistant t o including Cipro, Macrobid, Bactrim. Patient has already been given IM Rocephin and Bactrim. Patient has not had a fever here. She has been monitored here for hours and has had no decompensation. She is actually quite well- appearing. She has not run any fevers here. I did discuss with Dr. Fam. Discussed presentation, abscess, UTI, requested files. Plan is for patient be treated with Bactrim and Keflex, urine culture was placed, she is to return if she develops a fever, vomiting, worsening abscess, or any other worsening symptoms. Patient states understanding and agreement. Patient actually left with law enforcement who waited at the room the entire time. - Vital Signs Vital signs: Temp Pulse Resp BP Pulse Ox 97.8 F 77 22 H 117/76 100 01/13/19 02:22 01/13/19 02:22 01/13/19 02:22 01/13/19 02:22 01/13/19 02:22 - Laboratory Result Diagrams: 01/12/19 20:10 01/12/19 20:10 Laboratory results interpreted by me: 01/12/19 01/12/19 01/12/19 18:00 20:10 20:10 RBC 3.64 L Hgb 8.5 L Hct 26.4 L MCV 73 L MCH 23.2 L RDW 18.8 H Glucose 72 L Alkaline Phosphatase 128 H Total Protein 8.3 H Urine Ketones TRACE H Urine Nitrite POSITIVE H Ur Leukocyte Esterase LARGE H Procedures - Incision and Drainage Left medial gluteal area Type: Single Anesthetic type: 1% Lidocaine mL's of anesthetic: 8 I&D procedure: Shurclens applied, Iodoform packing placed, Sterile dressing applied Incision Method: Incision made by scalpel Amount/type of drainage: Moderate amount of purulent drainage, small amount of bloody drainage Discharge - Discharge Clinical Impression: Flank pain, Left buttock abscess Urinary tract infection Qualifiers: Urinary tract infection type: site unspecified Hematuria presence: without hematuria Qualified Code(s): N39.0 - Urinary tract infection, site not specified Condition: Stable Disposition: HOME, SELF-CARE Additional Instructions: Your work-up shows indication of a urinary tract infection. We have cultures pending. Your previous culture showed susceptibility to Bactrim therefore take this antibiotic as prescribed. Take the Keflex antibiotic as well because of the abscess. Keep the abscess clean, clean with soap and water, keep absorbing gauze dressing over the area. Change the dressing at least daily. Return for any concerning or worsening symptoms including vomiting, spreading redness on the area, fevers, or any other concerning or worsening symptoms. Prescriptions: Cephalexin Monohydrate [Keflex 500 mg Capsule] 500 mg PO QID #28 capsule Sulfamethoxazole/Trimethoprim [Bactrim Ds Tablet] 1 each PO BID #14 tablet Referrals: VENESSA TREADWELL MD [Primary Care Provider] - Follow up as needed
[2019-01-12 20:50] LABS: ALANINE AMINOTRANSFERASE 14 U/L (9-52); ALBUMIN 4.1 g/dL (3.5-5.0); ALKALINE PHOSPHATASE 128 U/L (38-126); ANION GAP 10 (5-19); ASPARTATE AMINO TRANSFERASE 31 U/L (14-36); BILIRUBIN,DIRECT 0.4 mg/dL (0.0-0.4); BILIRUBIN,TOTAL 0.4 mg/dL (0.2-1.3); BLOOD UREA NITROGEN 9 mg/dL (7-20); CALCIUM 9.6 mg/dL (8.4-10.2); CARBON DIOXIDE 23 mmol/L (22-30); CHLORIDE 107 mmol/L (98-107); GLUCOSE 72 mg/dL (75-110); SODIUM 139.8 mmol/L (137-145); TOTAL PROTEIN 8.3 g/dL (6.3-8.2)
[2019-01-12 20:52] LABS: POTASSIUM 4.5 mmol/L (3.6-5.0)
[2019-01-12] MEDS ORDERED: OXYCODONE-ACETAMINOPHEN 5-325 MG TABLET PO ONE (20:59)
[2019-01-12] MEDS ORDERED: LIDOCAINE 1% INJ-PF (10 MG/ML) 30 ML SDV INJ ONE ×2 (22:30→22:31)
[2019-01-12] MEDS ORDERED: SULFAMETHOXAZOLE/TRIMETHOPRIM 800-160 MG TABLET PO ONE (22:31)
[2019-01-12] MEDS ORDERED: CEFTRIAXONE INJ 1000 MG VIAL IM ONE (22:31)
--- NOTE | 2019-01-12 22:46 | PDOC CONSULTATION ---
Consultation Consult Date: 01/12/19 Provider Consulted: BERYL SHEFFIELD Consult reason:: Evaluate for possible perianal abscess History of Present Illness Admission Date/PCP: VENESSA TREADWELL MD Patient complains of: Left buttocks pain History of Present Illness: CRYS RIZZO is a 33 year old female IV heroin abuser recently hospitalized at an outside hospital for E. coli sepsis. She left AGAINST MEDICAL ADVICE. She continues to have urologic symptoms as well as several day history of left buttocks pain. No prior history of perianal problems. Past Medical History Pulmonary Medical History: Reports: Asthma - possible adult onset Infectious Medical History: Reports: Other Infectious History Note: According to the patient antibiotic resistant E. coli sepsis. Past Surgical History Past Surgical History: Reports: Tubal Ligation Social History Smoking Status: Unknown if Ever Smoked Frequency of Alcohol Use: Rare Hx Recreational Drug Use: Yes - Heroin Drugs: Heroin - She injected in her neck but not in her lower extremity nor groin Hx Prescription Drug Abuse: No Family History Family History: Malignancy, CAD, CVA, DM, Hyperlipidemia, Hypertension, Reviewed & Not Pertinent Parental Family History Reviewed: No Children Family History Reviewed: No Sibling(s) Family History Reviewed.: No Medication/Allergy Home Medications: Cephalexin Monohydrate [Keflex 500 mg Capsule] 500 mg PO Q6H 5 Days capsule 12/27/14 Clindamycin HCl [Cleocin 300 mg Capsule] 300 mg PO QID #28 capsule 12/27/14 Oxycodone HCl/Acetaminophen [Percocet 5-325 mg Tablet] 1 - 2 tab PO ASDIR PRN #15 tablet 12/27/14 Hydrocodone/Acetaminophen [[place] 5-325 mg Tablet] 1 tab PO Q6 #10 tablet 02/06/15 Oxycodone HCl/Acetaminophen [Percocet 5-325 mg Tablet] 1 - 2 tab PO ASDIR PRN #4 tablet 02/28/15 Sulfamethoxazole/Trimethoprim [Bactrim Ds Tablet] 1 each PO BID #6 tablet 08/15/15 Ciprofloxacin HCl [Cipro 500 mg Tablet] 500 mg PO BID #14 tablet 10/30/15 Phenazopyridine HCl [Pyridium 200 mg Tablet] 200 mg PO TID #12 tablet 10/30/15 Etodolac [Lodine] 400 mg PO BID #14 tablet 04/10/17 Sulfamethoxazole/Trimethoprim [Bactrim Ds Tablet] 1 each PO BID #14 tablet 04/10/17 Ferrous Sulfate 325 mg PO DAILY #60 tablet 03/01/18 Clindamycin HCl [Cleocin 300 mg Capsule] 600 mg PO Q8 #84 cap 08/09/18 Levofloxacin [Levaquin 750 mg Tablet] 750 mg PO DAILY #10 tab 08/09/18 Allergies/Adverse Reactions: amoxicillin [Amoxicillin] Allergy (Verified 01/12/19 18:12) Penicillins Adverse Reaction (Verified 01/12/19 18:12) Physical Exam Vital Signs: Temp Pulse Resp BP Pulse Ox 98.0 F 86 18 131/82 H 89 L 01/12/19 18:20 01/12/19 18:20 01/12/19 18:20 01/12/19 18:20 01/12/19 18:20 Intake & Output 01/11/19 01/12/19 01/13/19 06:59 06:59 06:59 Weight 57.4 kg General appearance: PRESENT: cooperative, mild distress Eye exam: PRESENT: conjunctiva pink Respiratory exam: PRESENT: clear to auscultation lupe Cardiovascular exam: PRESENT: RRR GI/Abdominal exam: PRESENT: other - Soft, nondistended, nontender to palpation although she does have some left groin tenderness with very small mobile nodes. Positive right CVA tenderness Rectal exam: PRESENT: other - Digital rectal exam reveals normal anal sphincter tone with no perianal masses nor fluctuance nor tenderness. Patient does have a left buttocks walnut size region of erythema and marked tenderness that is a few centimeters away from the perianal region. Neurological exam: PRESENT: awake Psychiatric exam: PRESENT: anxious, other - Tearful Results Laboratory Results: 01/12/19 20:10 01/12/19 20:10 01/12/19 01/12/19 01/12/19 18:00 20:10 20:10 WBC 6.3 RBC 3.64 L Hgb 8.5 L Hct 26.4 L MCV 73 L MCH 23.2 L MCHC 32.0 RDW 18.8 H Plt Count 415 Seg Neutrophils % 72.9 Lymphocytes % 17.3 Monocytes % 6.9 Eosinophils % 2.3 Basophils % 0.6 Absolute Neutrophils 4.6 Absolute Lymphocytes 1.1 Absolute Monocytes 0.4 Absolute Eosinophils 0.1 Absolute Basophils 0.0 Sodium 139.8 Potassium 4.5 Chloride 107 Carbon Dioxide 23 Anion Gap 10 BUN 9 Creatinine 0.52 Est GFR ( Amer) > 60 Est GFR (Non-Af Amer) > 60 Glucose 72 L Calcium 9.6 Total Bilirubin 0.4 AST 31 ALT 14 Alkaline Phosphatase 128 H Total Protein 8.3 H Albumin 4.1 Serum HCG, Qual Urine Color YELLOW Urine Appearance CLOUDY Urine pH 6.0 Ur Specific [place] 1.017 Urine Protein NEGATIVE Urine Glucose (UA) NEGATIVE Urine Ketones TRACE H Urine Blood NEGATIVE Urine Nitrite POSITIVE H Ur Leukocyte Esterase LARGE H Urine WBC (Auto) >182 Urine RBC (Auto) 6 01/12/19 20:10 WBC RBC Hgb Hct MCV MCH MCHC RDW Plt Count Seg Neutrophils % Lymphocytes % Monocytes % Eosinophils % Basophils % Absolute Neutrophils Absolute Lymphocytes Absolute Monocytes Absolute Eosinophils Absolute Basophils Sodium Potassium Chloride Carbon Dioxide Anion Gap BUN Creatinine Est GFR ( Amer) Est GFR (Non-Af Amer) Glucose Calcium Total Bilirubin AST ALT Alkaline Phosphatase Total Protein Albumin Serum HCG, Qual NEGATIVE Urine Color Urine Appearance Urine pH Ur Specific [place] Urine Protein Urine Glucose (UA) Urine Ketones Urine Blood Urine Nitrite Ur Leukocyte Esterase Urine WBC (Auto) Urine RBC (Auto) Assessment & Plan - Diagnosis (1) Abscess of buttock, left Is this a current diagnosis for this admission?: Yes Plan: I do not think she has a perianal abscess. I believe it is a simple buttocks abscess. Emergency room PA stated that he could perform the I&D. Will defer to his expertise. (2) Pyelonephritis Is this a current diagnosis for this admission?: Yes Plan: Likely right pyelonephritis based upon her severe right CVA tenderness and her significantly positive urine. Defer to medical management.
[2019-01-13 02:26] VITALS: BP 117/76
== END 2019-01-13 02:30 | disposition home or self-care (01) ==
LOC: ER 17:49
DX: N39.0 Urinary tract infection, site not specified (principal); R10.9 Unspecified abdominal pain; L02.31 Cutaneous abscess of buttock; Z79.899 Other long term (current) drug therapy; Z87.891 Personal history of nicotine dependence
CPT/HCPCS: 99284; 96372; 36415; 87040; 87086; 84703; 85025; 87088; 80053; 81001; 87186; J3490; J0696

== ENCOUNTER 2019-05-26 21:49 | Observation (INO) | payer OTHER ==
[2019-05-26] MEDS ORDERED: NORMAL SALINE 1000 ML 1,000 ML IV ONE (22:08)
[2019-05-26] MEDS ORDERED: ONDANSETRON HCL INJ/PF 4 MG/2 ML SDV IV ONE (22:09)
[2019-05-26] MEDS ORDERED: MORPHINE SULFATE 10 MG/ML INJ IV ONE ×2 (22:09→23:33)
[2019-05-26 23:38] LABS: ABSOLUTE EOSINOPHILS # (AUTO) 0.1 10^3/uL (0.0-0.6); ABSOLUTE LYMPHOCYTES (AUTO) 1.6 10^3/uL (0.5-4.7); ABSOLUTE MONOCYTES (AUTO) 0.9 10^3/uL (0.1-1.4); BASOPHILS % (AUTO) 0.3 % (0-2); HEMATOCRIT 33.3 % (36.0-47.0); HEMOGLOBIN 10.4 g/dL (12.0-15.5); LYMPHOCYTES % (AUTO) 16.5 % (13-45); MEAN CORPUSCULAR HEMOGLOBIN 22.8 pg (27.0-33.4); MEAN CORPUSCULAR HGB CONC 31.4 g/dL (32.0-36.0); MEAN CORPUSCULAR VOLUME 73 fl (80-97); MONOCYTES % (AUTO) 9.6 % (3-13); PLATELET COUNT 272 10^3/uL (150-450); RED BLOOD COUNT 4.59 10^6/uL (3.72-5.28); RED CELL DISTRIBUTION WIDTH 18.6 % (11.5-14.0); SEGMENTED NEUTROPHILS % (AUTO) 72.6 % (42-78); TOTAL CELLS COUNTED % (AUTO) 100 %; WHITE BLOOD COUNT 9.7 10^3/uL (4.0-10.5)
[2019-05-26 23:57] LABS: ALBUMIN 4.4 g/dL (3.5-5.0); ALKALINE PHOSPHATASE 94 U/L (38-126); ANION GAP 10 (5-19); ASPARTATE AMINO TRANSFERASE 22 U/L (14-36); BILIRUBIN,DIRECT 0.1 mg/dL (0.0-0.4); BILIRUBIN,TOTAL 0.5 mg/dL (0.2-1.3); BLOOD UREA NITROGEN 10 mg/dL (7-20); CALCIUM 9.9 mg/dL (8.4-10.2); CARBON DIOXIDE 24 mmol/L (22-30); CHLORIDE 110 mmol/L (98-107); GLUCOSE 90 mg/dL (75-110); POTASSIUM 3.5 mmol/L (3.6-5.0); TOTAL PROTEIN 8.2 g/dL (6.3-8.2)
[2019-05-27] MEDS ORDERED: POTASSI CL 20 MEQ/1/2NS 1L 20 MEQ/1,000 ML RTUINJ IV ONE (00:35)
--- NOTE | 2019-05-27 01:02 | RADIOLOGY REPORT (SQ) ---
EXAM DESCRIPTION: RadLex: CT ABDOMEN PELVIS WITHOUT IV CONTRAST CLINICAL HISTORY: 33 years Female; RLQ pain TECHNIQUE: CT of the abdomen and pelvis without contrast. All CT scans at this facility use dose modulation, iterative reconstruction, and/or weight based dosing when appropriate to reduce radiation dose to as low as reasonably achievable. COMPARISON: None. FINDINGS: Abdomen: Liver:No focal lesions. No intrahepatic ductal distention. Gallbladder:Nondistended Pancreas:Within normal limits Spleen:Within normal limits Right kidney:No hydronephrosis. No renal or ureteral calculi. Left kidney:No hydronephrosis. No renal or ureteral calculi. Adrenal glands:Within normal limits Vascular structures:Within normal limits (although limited evaluation on noncontrast exam). Pelvis: Small bowel:No significant distention. Appendix: 9 mm diameter. There is edema surrounding the appendix, which extends retrocecal. No extraluminal fluid or air. Colon:No distention or acute pericolonic edema. No free intraperitoneal fluid or air. Bones: No acute bone findings. Bladder: Unremarkable. Uterus is unremarkable for this noncontrast exam. There are 2 tubal ligation clips, both to the left of the uterus. One of these is along the fallopian tube, with the other is located anterior/inferior, not on the right fallopian tube. Note that evaluation of the bowel and solid organs is somewhat limited due to lack of intravenous and oral contrast. IMPRESSION: 1. Mild enlargement of the appendix, with edema along the appendix suspicious for early acute appendicitis. 2. No perforation or abscess. 3. Left tubal ligation clip is in place, but the right tubal ligation clip is located in the left lower pelvis, not on the fallopian tube.
[2019-05-27] MEDS ORDERED: CEFOXITIN 1 GM/D5W RTU 1 GM/50 ML RTUPB IV ONE ×2 (01:11→01:12)
[2019-05-27] MEDS ORDERED: HYDROMORPHONE HCL INJ/PF 2 MG/ML AMPULE IV ONE (01:12)
[2019-05-27 01:15] LABS: APPEARANCE,URINE SLIGHTLY-CLOUDY; BILIRUBIN,URINE NEGATIVE (NEGATIVE); COLOR,URINE YELLOW; GLUCOSE, URINE NEGATIVE (NEGATIVE); KETONES,URINE NEGATIVE (NEGATIVE); LEUKOCYTE ESTERASE,URINE MODERATE (NEGATIVE); NITRITE,URINE NEGATIVE (NEGATIVE); PROTEIN,URINE NEGATIVE (NEGATIVE); URINE SPECIFIC GRAVITY 1.015; UROBILINOGEN,URINE NEGATIVE mg/dL (<2.0)
--- NOTE | 2019-05-27 01:15 | ER Document Report ---
Entered by THANG NASH SCRIBE 05/26/19 1229 Acting as scribe for:ERICK NAVA DO ED GI/ - General Stated Complaint: ABDOMINAL PAIN Time Seen by Provider: 05/26/19 22:08 Primary Care Provider: VENESSA TREADWELL MD [ACTIVE STAFF] - Follow up as needed Mode of Arrival: Ambulatory Information source: Patient Notes: This 33 year old female patient presents to the emergency department today from skilled nursing in custody of the [facility] for complaints of right lower quadrant abdominal pain. Patient states the pain woke her up this mo rning and has been present since onset. Patient also complains of dysuria. Patient denies a history of kidney stones. Patient is febrile. Patient denies vaginal bleeding. TRAVEL OUTSIDE OF THE [place] IN LAST 30 DAYS: No - Related Data Allergies/Adverse Reactions: amoxicillin [Amoxicillin] Allergy (Verified 01/12/19 18:12) Penicillins Adverse Reaction (Verified 01/12/19 18:12) Past Medical History - General Information source: Patient - Social History Smoking Status: Smoker,Current Status Unk Cigarette use (# per day): No Frequency of alcohol use: None Drug Abuse: None Lives with: Other - incarcerated Family History: Malignancy, CAD, CVA, DM, Hyperlipidemia, Hypertension, Reviewed & Not Pertinent Pulmonary Medical History: Reports: Hx Asthma - possible adult onset Renal/ Medical History: Reports: Hx Ovarian Cysts - Polycystic ovaries Musculoskeletal Medical History: Reports Hx Musculoskeletal Trauma Traumatic Medical History: Reports: Hx Spine Fracture Past Surgical History: Reports: Hx Genitourinary Surgery, Hx Oral Surgery, Hx Tubal Ligation - Immunizations Immunizations up to date: Yes Hx Diphtheria, Pertussis, Tetanus Vaccination: Yes Review of Systems - Review of Systems Constitutional: See HPI, Fever EENT: No symptoms reported Cardiovascular: No symptoms reported Respiratory: No symptoms reported Gastrointestinal: See HPI, Abdominal pain Genitourinary: See HPI, Dysuria Female Genitourinary: denies: Vaginal discharge Musculoskeletal: No symptoms reported Skin: No symptoms reported Hematologic/Lymphatic: No symptoms reported Neurological/Psychological: No symptoms reported -: Yes All other systems reviewed and negative Physical Exam - Vital signs Vitals: Temp Pulse Resp BP Pulse Ox 99.9 F 129 H 22 H 124/89 H 100 05/26/19 22:08 05/26/19 22:08 05/26/19 22:08 05/26/19 22:08 05/26/19 22:08 Interpretation: Tachycardic - General General appearance: Alert In distress: Mild - Appears uncomfortable - HEENT Head: Normocephalic, Atraumatic Eyes: Normal Pupils: PERRL Mucous membranes: Dry - Respiratory Respiratory status: No respiratory distress Chest status: Nontender Breath sounds: Normal Chest palpation: Normal - Cardiovascular Rhythm: Regular, Tachycardia Heart sounds: Normal auscultation Murmur: No - Abdominal Inspection: Normal Distension: No distension Tenderness: Tender, McBurney's point, Guarding. No: Rebound - Back Back: Normal - Extremities General upper extremity: Normal inspection, Normal ROM, Normal strength General lower extremity: Normal inspection, Normal ROM, Normal strength - Psychological Associated symptoms: Normal affect, Normal mood - Skin Skin Temperature: Hot Skin Moisture: Dry Skin Color: Flushed Course - Re-evaluation Re-evalutation: 05/27/19 01:10 Patient is a 33-year-old female who comes in with right lower quadrant pain and nausea. Patient also tachycardic with fever. Made n.p.o. and fluids initiated. CT consistent with appendicitis. Clinically, patient symptoms are consistent with this diagnosis. Discussed with surgeon who will see and admit the patient. Patient given cefoxitin due to penicillin allergy. - Vital Signs Vital signs: Temp Pulse Resp BP Pulse Ox 99.9 F 129 H 22 H 124/89 H 100 05/26/19 22:08 05/26/19 22:08 05/26/19 22:08 05/26/19 22:08 05/26/19 22:08 - Laboratory Result Diagrams: 05/26/19 23:24 05/26/19 23:24 Laboratory results interpreted by me: 05/26/19 05/26/19 23:24 23:24 Hgb 10.4 L Hct 33.3 L MCV 73 L MCH 22.8 L MCHC 31.4 L RDW 18.6 H Potassium 3.5 L Chloride 110 H Discharge - Discharge Clinical Impression: Appendicitis Qualifiers: Appendicitis type: acute appendicitis Acute appendicitis type: with localized peritonitis Appendicitis gangrene presence: without gangrene Appendicitis perforation presence: without perforation Appendicitis abscess presence: without abscess Qualified Code(s): K35.30 - Acute appendicitis with localized peritonitis, without perforation or gangrene Condition: Stable Disposition: ADMITTED INPATIENT Admitting Provider: Surgicalist Unit Admitted: Surgical Floor Referrals: VENESSA TREADWELL MD [ACTIVE STAFF] - Follow up as needed I personally performed the services described in the documentation, reviewed and edited the documentation which was dictated to the scribe in my presence, and it accurately records my words and actions.
[2019-05-27] MEDS ORDERED: MORPHINE SULFATE 10 MG/ML INJ IV PRN ×2 (02:03→09:47)
[2019-05-27] MEDS ORDERED: DEXTROSE 50%-WATER 25 GM/50 ML DISP.SYRIN IV PRN ×2 (02:03)
[2019-05-27] MEDS ORDERED: GLUCAGON,HUMAN RECOMB 1 MG INJ SUBCUT PRN (02:03)
[2019-05-27] MEDS ORDERED: DEXTROSE 5%-LACTATED RINGERS 1,000 ML IV PRN (02:03)
[2019-05-27] MEDS ORDERED: DEXTROSE 40% GEL 15 GM TUBE PO PRN ×2 (02:03)
[2019-05-27] MEDS: KETOROLAC TROMETHAMINE INJ/PF 30 MG/1 ML SDV IV SCH ×3 (05:39→22:53)
--- NOTE | 2019-05-27 06:14 | PDOC H&P ---
History of Present Illness Admission Date/PCP: 05/27/19 01:43 Patient complains of: Right lower quadrant pain History of Present Illness: CRYS IRAHETA is a 33 year old female with a 2-day history of worsening right lower quadrant pain. It is sharp and stabbing. It is 8 out of 10 at present. She reports nausea without vomiting, fevers, chills, and stabbing abdominal pain. She denies melena, hematochezia, hematemesis, chest pain, shortness of breath, dizziness, orthostasis, malaise, or fatigue. The patient was taken to the emergency department where a CT scan was performed showing inflammation of the appendix. Past Medical History Cardiac Medical History: Reports: Other - Endocarditis Pulmonary Medical History: Reports: Asthma - possible adult onset Past Surgical History Past Surgical History: Reports: Tubal Ligation Social History Lives with: Other - incarcerated Smoking Status: Smoker,Current Status Unk Frequency of Alcohol Use: Rare Hx Recreational Drug Use: Yes - Heroin Drugs: Heroin - She injected in her neck but not in her lower extremity nor groin Hx Prescription Drug Abuse: No Family History Family History: Malignancy, CAD, CVA, DM, Hyperlipidemia, Hypertension, Reviewed & Not Pertinent Parental Family History Reviewed: Yes Children Family History Reviewed: Yes Sibling(s) Family History Reviewed.: Yes Medication/Allergy Home Medications: Cephalexin Monohydrate [Keflex 500 mg Capsule] 500 mg PO Q6H 5 Days capsule 12/27/14 Clindamycin HCl [Cleocin 300 mg Capsule] 300 mg PO QID #28 capsule 12/27/14 Oxycodone HCl/Acetaminophen [Percocet 5-325 mg Tablet] 1 - 2 tab PO ASDIR PRN #15 tablet 12/27/14 Hydrocodone/Acetaminophen [[place] 5-325 mg Tablet] 1 tab PO Q6 #10 tablet 02/06/15 Oxycodone HCl/Acetaminophen [Percocet 5-325 mg Tablet] 1 - 2 tab PO ASDIR PRN #4 tablet 02/28/15 Sulfamethoxazole/Trimethoprim [Bactrim Ds Tablet] 1 each PO BID #6 tablet 08/15/15 Ciprofloxacin HCl [Cipro 500 mg Tablet] 500 mg PO BID #14 tablet 10/30/15 Phenazopyridine HCl [Pyridium 200 mg Tablet] 200 mg PO TID #12 tablet 10/30/15 Etodolac [Lodine] 400 mg PO BID #14 tablet 04/10/17 Sulfamethoxazole/Trimethoprim [Bactrim Ds Tablet] 1 each PO BID #14 tablet 04/10/17 Ferrous Sulfate 325 mg PO DAILY #60 tablet 03/01/18 Clindamycin HCl [Cleocin 300 mg Capsule] 600 mg PO Q8 #84 cap 08/09/18 Levofloxacin [Levaquin 750 mg Tablet] 750 mg PO DAILY #10 tab 08/09/18 Cephalexin Monohydrate [Keflex 500 mg Capsule] 500 mg PO QID #28 capsule 01/13/19 Sulfamethoxazole/Trimethoprim [Bactrim Ds Tablet] 1 each PO BID #14 tablet 01/13/19 Allergies/Adverse Reactions: amoxicillin [Amoxicillin] Allergy (Verified 01/12/19 18:12) Penicillins Adverse Reaction (Verified 01/12/19 18:12) Review of Systems Constitutional: PRESENT: chills, fever(s). ABSENT: anorexia, fatigue, headache(s) Eyes: ABSENT: visual disturbances Ears: ABSENT: hearing changes Nose, Mouth, and Throat: ABSENT: sore throat Cardiovascular: ABSENT: chest pain Respiratory: ABSENT: cough, dyspnea Gastrointestinal: PRESENT: abdominal pain, bloating, nausea. ABSENT: hematemesis, hematochezia, melena, vomiting Genitourinary: ABSENT: dysuria Musculoskeletal: ABSENT: back pain Integumentary: ABSENT: pruritus, rash Neurological: ABSENT: confusion, convulsions, dizziness Psychiatric: ABSENT: anxiety, depression Endocrine: ABSENT: cold intolerance, heat intolerance Hematologic/Lymphatic: ABSENT: easy bleeding, easy bruising Physical Exam Vital Signs: Temp Pulse Resp BP Pulse Ox 99.9 F 129 H 22 H 124/89 H 100 05/26/19 22:08 05/26/19 22:08 05/26/19 22:08 05/26/19 22:08 05/26/19 22:08 Intake & Output 05/25/19 05/26/19 05/27/19 06:59 06:59 06:59 Intake Total 1000 Balance 1000 Weight 63.503 kg General appearance: PRESENT: no acute distress, cooperative Head exam: PRESENT: atraumatic, normocephalic Eye exam: PRESENT: EOMI, PERRLA. ABSENT: scleral icterus Mouth exam: PRESENT: moist, neck supple Neck exam: ABSENT: tenderness, thyromegaly, tracheal deviation Respiratory exam: PRESENT: unlabored. ABSENT: chest wall tenderness, clear to auscultation lupe, tachypnea, wheezes Cardiovascular exam: PRESENT: RRR Pulses: PRESENT: normal radial pulses Vascular exam: PRESENT: normal capillary refill GI/Abdominal exam: PRESENT: guarding - Right lower quadrant, soft, tenderness - Right lower quadrant. ABSENT: distended Rectal exam: PRESENT: deferred Extremities exam: ABSENT: clubbing Musculoskeletal exam: ABSENT: deformity Neurological exam: PRESENT: alert, awake, oriented to person, oriented to place, oriented to time, oriented to situation, CN II-XII grossly intact. ABSENT: motor sensory deficit Psychiatric exam: ABSENT: agitated, anxious, depressed Focused psych exam: ABSENT: delusional Skin exam: ABSENT: cyanosis, erythema, jaundice Results Laboratory Results: 05/26/19 23:24 05/26/19 23:24 05/26/19 05/26/19 05/26/19 23:24 23:24 23:24 WBC 9.7 RBC 4.59 Hgb 10.4 L Hct 33.3 L MCV 73 L MCH 22.8 L MCHC 31.4 L RDW 18.6 H Plt Count 272 Seg Neutrophils % 72.6 Sodium 144.0 Potassium 3.5 L Chloride 110 H Carbon Dioxide 24 Anion Gap 10 BUN 10 Creatinine 0.69 Est GFR ( Amer) > 60 Glucose 90 Calcium 9.9 Total Bilirubin 0.5 AST 22 Alkaline Phosphatase 94 Total Protein 8.2 Albumin 4.4 Lipase 116.4 Serum HCG, Qual NEGATIVE Urine Color Urine Appearance Urine pH Ur Specific [place] Urine Protein Urine Glucose (UA) Urine Ketones Urine Blood Urine Nitrite Ur Leukocyte Esterase Urine WBC (Auto) Urine RBC (Auto) 05/27/19 00:55 WBC RBC Hgb Hct MCV MCH MCHC RDW Plt Count Seg Neutrophils % Sodium Potassium Chloride Carbon Dioxide Anion Gap BUN Creatinine Est GFR ( Amer) Glucose Calcium Total Bilirubin AST Alkaline Phosphatase Total Protein Albumin Lipase Serum HCG, Qual Urine Color YELLOW Urine Appearance SLIGHTLY-CLOUDY Urine pH 6.0 Ur Specific [place] 1.015 Urine Protein NEGATIVE Urine Glucose (UA) NEGATIVE Urine Ketones NEGATIVE Urine Blood SMALL H Urine Nitrite NEGATIVE Ur Leukocyte Esterase MODERATE H Urine WBC (Auto) 17 Urine RBC (Auto) 3 Impressions: Abdomen/Pelvis CT 05/26/19 22:28 IMPRESSION: 1. Mild enlargement of the appendix, with edema along the appendix suspicious for early acute appendicitis. 2. No perforation or abscess. 3. Left tubal ligation clip is in place, but the right tubal ligation clip is located in the left lower pelvis, not on the fallopian tube. Assessment & Plan - Diagnosis (1) Appendicitis Qualifiers: Appendicitis type: acute appendicitis Acute appendicitis type: with localized peritonitis Appendicitis gangrene presence: without gangrene Appendicitis perforation presence: without perforation Appendicitis abscess presence: without abscess Qualified Code(s): K35.30 - Acute appendicitis with localized peritonitis, without perforation or gangrene Is this a current diagnosis for this admission?: Yes - Plan Summary Plan Summary: This is a 33-year-old female with signs, symptoms, and imaging studies consistent with appendicitis. I will admit the patient to the hospital, start her on intravenous antibiotics, and plan for laparoscopic appendectomy. I have discussed treatment of acute appendicitis with her at length. She has agreed to operative intervention. Risks/benefits discussed, informed consent obtained, an d all questions answered.
[2019-05-27] MEDS ORDERED: CEFOXITIN SODIUM 2 GM in DEXTROSE 5%-WATER 100 ML IV SCH ×4 (08:00)
[2019-05-27] MEDS ORDERED: FENTANYL CITRATE INJ/PF 100 MCG/2 ML AMPUL ONE ×2 (08:05→10:50)
[2019-05-27] MEDS ORDERED: ONDANSETRON HCL INJ/PF 4 MG/2 ML SDV ONE (08:05)
[2019-05-27] MEDS ORDERED: DEXAMETHASONE SOD PHOSPHATE INJ 4 MG/1 ML VIAL ONE (08:05)
[2019-05-27] MEDS ORDERED: MIDAZOLAM 2 MG/2 ML INJ ONE (08:05)
[2019-05-27] MEDS ORDERED: PROPOFOL INJ 200 MG/20 ML VIAL IV ONE (08:06)
[2019-05-27] MEDS ORDERED: MORPHINE SULFATE 10 MG/ML INJ ONE (08:06)
[2019-05-27] MEDS ORDERED: FENTANYL CITRATE INJ/PF 100 MCG/2 ML AMPUL IV PRN ×3 (09:47)
[2019-05-27] MEDS ORDERED: DIPHENHYDRAMINE HCL 50 MG/ML VIAL IV PRN (09:47)
[2019-05-27] MEDS ORDERED: PROMETHAZINE HCL INJ 25 MG/1 ML VIAL IV PRN ×2 (09:47)
[2019-05-27] MEDS ORDERED: MEPERIDINE HCL/PF INJ 25 MG/1 ML DISP.SYRIN IV PRN (09:47)
[2019-05-27] MEDS: BUPIVACAINE HCL 0.25 % INJ/PF (2.5 MG/1 ML) 30 ML VIAL ONE ×2 (09:52→10:12)
[2019-05-27] MEDS ORDERED: EPHEDRINE SULFATE INJ 50 MG/1 ML AMPULE ONE (09:55)
--- NOTE | 2019-05-27 13:19 | Operative Report ---
Nonrecallable Operative Report DATE OF SURGERY: 05/27/19 PREOPERATIVE DIAGNOSIS: Acute appendicitis POSTOPERATIVE DIAGNOSIS: Acute nonperforated appendicitis OPERATION: Laparoscopic appendectomy SURGEON: ABRIL VASQUEZ ANESTHESIA: GA TISSUE REMOVED OR ALTERED: Appendix COMPLICATIONS: None apparent ESTIMATED BLOOD LOSS: Minimal PROCEDURE: Drains/implants: None. Procedure in detail: After informed consent was obtained, the patient was brought to the operating room and laid in the supine position. The area of the abdomen was prepped and draped in a normal sterile fashion. A supraumbilical incision was created with a 15 blade scalpel. Dissection was carried through the subcutaneous tissue using sharp and blunt dissection. The linea alba fascia was incised sharply, the abdomen was entered sharply. The balloon trocar was inserted, and pneumoperitoneum was achieved. A suprapubic 5 mm port, as well as a left lower quadrant 5 mm port were placed under direct laparoscopic visualization. Atraumatic graspers were placed through the 5 mm ports. The appendix was in a retrocecal location. The white line of [place] on the right was somewhat mobilized in order to access the appendix. The cecum was rotated medially. The retrocecal appendix was very carefully freed from the wall of the cecum. The base of the appendix was identified. The mesoappendix was ligated using the harmonic scalpel. 2 PDS Endoloops were secured around the base of the appendix, and the appendix was amputated. This was also done with the harmonic scalpel. The appendix was placed into an Endo Catch bag and pulled out through the umbilicus. The camera was reinserted. The right lower quadrant was inspected. It was found to be free of any defect. The 5 mm trochars were removed under direct laparoscopic visualization. There is no bleeding identified. The supraumbilical trocar was then removed, and pneumoperitoneum was relieved. The supraumbilical fascia was closed using 0 Vicryl suture in [id number] fashion. The overlying skin was closed using 4-0 Vicryl Rapide suture in subcuticular fashion. Dressings were placed, and the procedure was concluded. All sponge, instrument, and needle counts were correct x2. Condition: Stable.
[2019-05-27] MEDS: FAMOTIDINE INJ/PF 20 MG/2 ML SDV IV SCH ×2 (13:24→22:53)
[2019-05-27] MEDS: HYDROCODONE/ACETAMINOPHEN 10-325 MG TABLET PO PRN ×2 (16:09→21:25)
[2019-05-27] MEDS ORDERED: SUCCINYLCHOLINE CHLORIDE INJ 200 MG/10 ML VIAL ONE (17:27)
[2019-05-27] MEDS ORDERED: ROCURONIUM BROMIDE INJ 50 MG/5 ML VIAL IV ONE (17:27)
[2019-05-27] MEDS: ONDANSETRON HCL INJ/PF 4 MG/2 ML SDV IV PRN ×2 (17:40→21:24)
[2019-05-28] MEDS: KETOROLAC TROMETHAMINE INJ/PF 30 MG/1 ML SDV IV SCH ×3 (05:27→21:48)
--- NOTE | 2019-05-28 08:10 | PDOC DISCHARGE SUMMARY ---
General - Admit/Disc Date/PCP Admission Date/Primary Care Provider: 05/27/19 01:43 Discharge Date: 05/28/19 - Discharge Diagnosis Final Diagnosis: acute appendicitis - Assessment Summary: pt admitted with acute appendicitis started on iv abx taken to or on hosp 2 in the am underwent laparoscoic appendectomy pt has had a routine post op course now [facility] po afeb with stable vital signs ready for dc home. - Additional Information Resuscitation Status: Full Code Discharge Diet: As Tolerated Discharge Activity: Activity As Tolerated - needs f/u in surgery clinic in 01-13 Referrals: VENESSA TREADWELL MD [ACTIVE STAFF] - Follow up as needed Home Medications: No Home Medications 05/27/19 History of Present Illiness History of Present Illness: CRYS IRAHETA is a 33 year old female Physical Exam Vital Signs: Temp Pulse Resp BP Pulse Ox 97.7 F 70 16 106/55 L 98 05/28/19 03:57 05/28/19 03:57 05/28/19 03:57 05/28/19 03:57 05/28/19 03:57 Intake & Output 05/27/19 05/28/19 05/29/19 06:59 06:59 06:59 Intake Total 1050 1710 Output Total 5 Balance 1050 1705 Weight 63.5 kg 63.6 kg Results Laboratory Results: WBC 9.7 10^3/uL (4.0-10.5) 05/26/19 23:24 RBC 4.59 10^6/uL (3.72-5.28) 05/26/19 23:24 Hgb 10.4 g/dL (12.0-15.5) L 05/26/19 23:24 Hct 33.3 % (36.0-47.0) L 05/26/19 23:24 MCV 73 fl (80-97) L 05/26/19 23:24 MCH 22.8 pg (27.0-33.4) L 05/26/19 23:24 MCHC 31.4 g/dL (32.0-36.0) L 05/26/19 23:24 RDW 18.6 % (11.5-14.0) H 05/26/19 23:24 Plt Count 272 10^3/uL (150-450) 05/26/19 23:24 Lymph % (Auto) 16.5 % (13-45) 05/26/19 23:24 [place] % (Auto) 9.6 % (3-13) 05/26/19 23:24 Eos % (Auto) 1.0 % (0-6) 05/26/19 23:24 Baso % (Auto) 0.3 % (0-2) 05/26/19 23:24 Absolute Neuts (auto) 7.0 10^3/uL (1.7-8.2) 05/26/19 23:24 Absolute Lymphs (auto) 1.6 10^3/uL (0.5-4.7) 05/26/19 23:24 Absolute Monos (auto) 0.9 10^3/uL (0.1-1.4) 05/26/19 23:24 Absolute Eos (auto) 0.1 10^3/uL (0.0-0.6) 05/26/19 23:24 Absolute Basos (auto) 0.0 10^3/uL (0.0-0.2) 05/26/19 23:24 Seg Neutrophils % 72.6 % (42-78) 05/26/19 23:24 Sodium 144.0 mmol/L (137-145) 05/26/19 23:24 Potassium 3.5 mmol/L (3.6-5.0) L 05/26/19 23:24 Chloride 110 mmol/L (98-107) H 05/26/19 23:24 Carbon Dioxide 24 mmol/L (22-30) 05/26/19 23:24 Anion Gap 10 (5-19) 05/26/19 23:24 BUN 10 mg/dL (7-20) 05/26/19 23:24 Creatinine 0.69 mg/dL (0.52-1.25) 05/26/19 23:24 Est GFR ( Amer) > 60 (>60) 05/26/19 23:24 Est GFR (MDRD) Non-Af > 60 (>60) 05/26/19 23:24 Glucose 90 mg/dL (75-110) 05/26/19 23:24 Calcium 9.9 mg/dL (8.4-10.2) 05/26/19 23:24 Total Bilirubin 0.5 mg/dL (0.2-1.3) 05/26/19 23:24 Direct Bilirubin 0.1 mg/dL (0.0-0.4) 05/26/19 23:24 Neonat Total Bilirubin Not Reportable 05/26/19 23:24 Neonat Direct Bilirubin Not Reportable 05/26/19 23:24 Neonat Indirect Bili Not Reportable 05/26/19 23:24 AST 22 U/L (14-36) 05/26/19 23:24 ALT 11 U/L (<35) 05/26/19 23:24 Alkaline Phosphatase 94 U/L (38-126) 05/26/19 23:24 Total Protein 8.2 g/dL (6.3-8.2) 05/26/19 23:24 Albumin 4.4 g/dL (3.5-5.0) 05/26/19 23:24 Lipase 116.4 U/L (23-300) 05/26/19 23:24 Serum HCG, Qual NEGATIVE (NEGATIVE) 05/26/19 23:24 Urine Color YELLOW 05/27/19 00:55 Urine Appearance SLIGHTLY-CLOUDY 05/27/19 00:55 Urine pH 6.0 (5.0-9.0) 05/27/19 00:55 Ur Specific [place] 1.015 05/27/19 00:55 Urine Protein NEGATIVE mg/dL (NEGATIVE) 05/27/19 00:55 Urine Glucose (UA) NEGATIVE mg/dL (NEGATIVE) 05/27/19 00:55 Urine Ketones NEGATIVE mg/dL (NEGATIVE) 05/27/19 00:55 Urine Blood SMALL (NEGATIVE) H 05/27/19 00:55 Urine Nitrite NEGATIVE (NEGATIVE) 05/27/19 00:55 Urine Bilirubin NEGATIVE (NEGATIVE) 05/27/19 00:55 Urine Urobilinogen NEGATIVE mg/dL (<2.0) 05/27/19 00:55 Ur Leukocyte Esterase MODERATE (NEGATIVE) H 05/27/19 00:55 Urine WBC (Auto) 17 /HPF 05/27/19 00:55 Urine RBC (Auto) 3 /HPF 05/27/19 00:55 Squamous Epi Cells Auto <1 /HPF 05/27/19 00:55 Urine Mucus (Auto) RARE /LPF 05/27/19 00:55 Urine Ascorbic Acid NEGATIVE (NEGATIVE) 05/27/19 00:55 Impressions: Abdomen/Pelvis CT 05/26/19 22:28 IMPRESSION: 1. Mild enlargement of the appendix, with edema along the appendix suspicious for early acute appendicitis. 2. No perforation or abscess. 3. Left tubal ligation clip is in place, but the right tubal ligation clip is located in the left lower pelvis, not on the fallopian tube.
[2019-05-28] MEDS: FAMOTIDINE INJ/PF 20 MG/2 ML SDV IV SCH ×2 (09:48→21:47)
[2019-05-29] MEDS: KETOROLAC TROMETHAMINE INJ/PF 30 MG/1 ML SDV IV SCH (07:44)
[2019-05-29] MEDS ORDERED: TAMSULOSIN HCL 0.4 MG CAP.SR.24H PO ONE (09:00)
[2019-05-29] MEDS: HYDROCODONE/ACETAMINOPHEN 10-325 MG TABLET PO PRN (09:55)
[2019-05-29] MEDS ORDERED: KETOROLAC TROMETHAMINE 10 MG TABLET PO PRN (10:00)
[2019-05-29 13:26] VITALS: BP 128/78
== END 2019-05-29 13:44 ==
LOC: ER 21:49 → EH 05-27 01:43 → INTOOBSV 05-27 01:43 → 3S 05-27 05:26
PROVIDERS: ATTEND Surgery
PROC: 0DTJ4ZZ Resection of Appendix, Percutaneous Endoscopic Approach (ICD-10-PCS; principal; 2019-05-27 08:30)
DX: K35.80 Unspecified acute appendicitis (principal); Z98.51 Tubal ligation status; R30.0 Dysuria; F17.200 Nicotine dependence, unspecified, uncomplicated; R00.0 Tachycardia, unspecified; Z87.42 Personal history of other diseases of the female genital tract; Z88.0 Allergy status to penicillin
CPT/HCPCS: 96376; 99285; 96361; 96374; 96375; 36415; 87040; 83690; 84703; 85025; 80053; 81001; 88304 ×2; 74176; 00840; 44970; G0378 ×4; J2250; J3490 ×3; J1100; J3480; J3010; J0694; J1885 ×2; J2270 ×2; J1170; J0330; J2405 ×2; J7121; J7030; J2704; S0028 ×2; 840

== ENCOUNTER 2020-05-13 14:20 | Emergency (ER) | payer SELFPAY ==
[2020-05-13] MEDS ORDERED: DIPH/PERTUSS(ACELL)/TETANUS VAC/PF 0.5 ML SYR (>=10YO) IM ONE (14:58)
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
[2020-05-13] MEDS ORDERED: OXYCODONE-ACETAMINOPHEN 5-325 MG TABLET PO ONE (15:48)
--- NOTE | 2020-05-13 15:48 | RADIOLOGY REPORT (SQ) ---
EXAM DESCRIPTION: HAND LEFT 3 VIEWS IMAGES COMPLETED DATE/TIME: 05/13/2020 3:19 pm REASON FOR STUDY: FB COMPARISON: None. EXAM PARAMETERS: NUMBER OF VIEWS: Three views. TECHNIQUE: AP, lateral and oblique radiographic images acquired of the left hand. LIMITATIONS: None. FINDINGS: MINERALIZATION: Normal. BONES: No acute fracture or dislocation. No worrisome bone lesions. JOINTS: No effusions. SOFT TISSUES: No soft tissue swelling. No foreign body. OTHER: No other significant finding. IMPRESSION: NEGATIVE STUDY OF THE LEFT HAND. NO RADIOGRAPHIC EVIDENCE OF ACUTE INJURY. TECHNICAL DOCUMENTATION: JOB ID: [id number] 2010 [employer]- All Rights Reserved Reading location - IP/workstation name: [email or web address]
[2020-05-13] MEDS ORDERED: LIDOCAINE 1%/EPINEPHRINE INJ 20 ML VIAL INJ ONE (16:01)
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
[2020-05-13 17:19] VITALS: BP 129/75
== END 2020-05-13 17:20 | disposition home or self-care (01) ==
LOC: ER 14:20
PROC: 0HQGXZZ Repair Left Hand Skin, External Approach (ICD-10-PCS; principal; 2020-05-13)
DX: S61.412A Laceration without foreign body of left hand, initial encounter (principal); W26.0XXA Contact with knife, initial encounter; Y93.G1 Activity, food preparation and clean up; F17.200 Nicotine dependence, unspecified, uncomplicated; J45.909 Unspecified asthma, uncomplicated
CPT/HCPCS: 99284; 73130; 90715; 12001; J3490